=== PATIENT | male | born 1930 | race Caucasian/White ===

== ENCOUNTER → 2016-10-08 | Outpatient (CLI) | payer MEDICARE ==
[~2016-10-08] MED LIST: ALBUTEROL2.5 MG/0.5 INH; AMIODARONE HCL200 MG PO; ASPIRIN325 MG PO; AUGMENTIN875 MG PO; CEFTRIAXONE2 GM IV; CLOTRIMAZOLE-BE45 GM TOP; CORDARONE,PACE200 MG PO; DELTASONE10 MG PO; DELTASONE5 MG PO; DULERA 100 MCG/51 EA INH; FLAGYL500 MG PO; FLORASTOR250 MG PO; KEFLEX500 MG PO; LACTINEX (FLORA1 TAB PO; LEVOTHROID (S100 MCG PO; LEVOTHROID(SYN75 MCG PO; NORVASC5 MG PO; PROTONIX40 MG PO; ROLAIDS CHEWAB1 EACH PO; SYMBICORT 80-10.2 GM INH; THERA-VITE W/ B1 TAB PO; TYLENOL325 MG PO; ZOCOR40 MG PO
== END | disposition disaster alternative care site (69) ==
LOC: GRAD 08:38
DX: R19.06 Epigastric swelling, mass or lump (principal); K76.9 Liver disease, unspecified

== ENCOUNTER → 2016-10-19 | Day surgery (SDC) | payer MEDICARE ==
[2016-10-19 09:07] LABS: INR - (THERAPEUTIC) 1.12 (0.92-1.07); PROTIME 11.8 SECONDS (9.8-11.4)
== END | disposition disaster alternative care site (69) ==
LOC: GOPD 10-13 → EDSTATUS 13:30 → GOPD 13:30
PROVIDERS: Family Medicine
PROC: 0FB13ZX Excision of Right Lobe Liver, Percutaneous Approach, Diagnostic (ICD-10-PCS; principal; 2016-10-19)
DX: B17.9 Acute viral hepatitis, unspecified (principal); K72.90 Hepatic failure, unspecified without coma; I10 Essential (primary) hypertension; J45.30 Mild persistent asthma, uncomplicated; E78.5 Hyperlipidemia, unspecified; E03.9 Hypothyroidism, unspecified; Z87.891 Personal history of nicotine dependence; Z90.49 Acquired absence of other specified parts of digestive tract; Z98.890 Other specified postprocedural states; Z79.82 Long term (current) use of aspirin; Z79.899 Other long term (current) drug therapy

== ENCOUNTER 2016-10-20 14:14 | Inpatient (IN) | payer MEDICARE ==
[~2016-10-20] VITALS: Ht 154.9 cm; Wt 58.4 kg
--- NOTE | ~2016-10-20 | CON ---
PATIENT'S NAME: VIRIDIANA LEVIN [facility] AGE: 86 Y [address] ROOM: [place] [address] LOCATION: GPCU ADMIT DATE: 10/20/2016 Consultation DISCHARGE DATE: FAMILY PHYSICIAN: TIMOTHY HOLMAN MD ATTENDING PHYSICIAN: Aden FLORES DATE OF CONSULTATION: 10/28/2016 REFERRING PHYSICIAN: Chantell Up M.D. REASON FOR VISIT: Right arm swelling. HISTORY OF PRESENT ILLNESS: This is an 86-year-old male patient who was admitted to [facility] with severe sepsis. He has a significant history of COPD, hypothyroidism, paroxysmal atrial fibrillation, liver abscess, septic shock secondary to E. coli, CAD, and chronic diastolic congestive heart failure. Per nursing documentation, the patient had a right posterior forearm IV infiltration on 10/24/2016. The patient has noted increasing arm swelling. He is denying arm pain. No open ulcers. No cyanosis or skin discoloration. Normal range of motion noted. Dryness to heels noted. No other skin issues. The patient denies fevers, chills, or sweats. He reports good oral intake. He denies chest pain or shortness of breath. He admits to fatigue. PAST MEDICAL HISTORY: Chronic diastolic congestive heart failure, dyslipidemia, nonobstructive coronary artery disease, paroxysmal atrial fibrillation, essential hypertension, COPD, hyperthyroidism, liver abscess, and septic shock secondary to E. coli. PAST SURGICAL HISTORY: Cholecystectomy, liver biopsy, laminectomy with decompression, bilateral cataract removal, hand surgery, and heart catheterization. FAMILY HISTORY: The patient's mother suffered from diabetes. SOCIAL HISTORY: The patient lives in [place]. He quit smoking in 1968. He denies alcohol or illicit drug use. PATIENT'S NAME: VIRIDIANA LEVIN [facility] AGE: 86 Y [address] ROOM: [address] [place] [address] LOCATION: GPCU ADMIT DATE: 10/20/2016 Consultation DISCHARGE DATE: FAMILY PHYSICIAN: TIMOTHY HOLMAN MD ATTENDING PHYSICIAN: Aden FLORES ALLERGIES: GUAIFENESIN. CURRENT MEDICATIONS: Please refer to the medication administration record. REVIEW OF SYSTEMS: All are negative except as mentioned above in the HPI. PHYSICAL EXAMINATION: VITAL SIGNS: Temperature 98.4, pulse 75, respirations 18, blood pressure 155/70, pulse oximetry 93%, height 5 feet and 1 inch, and weight 60.3 kg. GENERAL: The patient is alert and oriented. Slightly hard of hearing. HEENT: Head normocephalic and atraumatic. RESPIRATIONS: Even and unlabored. NEUROLOGIC: Grossly nonfocal. EXTREMITIES: +2 pedal pulses. +1 lower leg edema. Capillary refill intact. Skin peeling noted to heels. Extremities are warm to touch. +2 right radial pulse. SKIN: +2 edema to the right forearm, elbow, and upper arm. No ulcers or discoloration. No other skin issues. LABORATORY DATA: White blood cell count 25.1, hemoglobin 10.2, hematocrit 31.4, and platelets 337. Sodium 138, potassium 3.9, chloride 105, bicarbonate 25, BUN 23, creatinine 0.9, glucose 128, albumin 2.2, and prealbumin 15. ASSESSMENT AND PLAN: Again, this is an 86-year-old male patient who was admitted to [facility] with severe sepsis. Wound Care consult to evaluate and assess right arm swelling. 1. Right arm edema secondary to IV infiltration. No open areas. No discoloration noted. No pain. Orders to elevate and use ice intermittently. The patient would benefit from compression. Discussed edema wear, however, we do not have available for inpatients. Gave handout to patient if he would like to purchase on his own on dismissal. For now, we will use Tubigrip size C compression. Nursing is to apply on in the morning and off at bedtime. 2. Bilateral heel xerosis. Nursing is to apply Aloe [place] b.i.d. to heels. 3. Severe sepsis secondary to liver abscess. The patient on IV antibiotics. 4. Atrial fibrillation. Cardio on board. I would like to thank Dr. Up for this consultation. PATIENT'S NAME: VIRIDIANA LEVIN [facility] AGE: 86 Y [address] ROOM: [id number] [place] [id number] [facility]: [facility] ADMIT DATE: 10/20/2016 Consultation DISCHARGE DATE: FAMILY PHYSICIAN: TIMOTHY HOLMAN MD ATTENDING PHYSICIAN: Aden FLORES TERRELL MATHEWS MD MKS/danny /[id number] d: 10/28/162027 t: 11/09/16 1200, CONSULTATION REPORT
--- NOTE | ~2016-10-20 | ER ---
PATIENT'S NAME: VIRIDIANA LEVIN [facility] AGE: 86 Y [address] ROOM: [place] [address] LOCATION: GPCU ADMIT DATE: 10/20/2016 ER/Outpatient Report DISCHARGE DATE: FAMILY PHYSICIAN: TIMOTHY PAZ MD ATTENDING PHYSICIAN: Aden XIAO Admission date and time documented in the medical record. I saw the patient at 1425 hours. CHIEF COMPLAINT: Mid to right upper quadrant abdominal pain. HISTORY OF PRESENT ILLNESS: The patient is an 86-year-old male, who presented to the emergency room with mid epigastric right upper quadrant abdominal pain. He had a liver biopsy yesterday, developed this pain through the night and especially through today. Did have an elevated temperature of 101 this morning, had some Tylenol, it was normal at 98 here in the emergency department. Blood pressure was stable at 123/57, his pulse was 89, respirations 16, and O2 saturation on room air was 95%. Did not have any rigors or chills. No nausea, vomiting, or diarrhea. He is passing gas. No urinary frequency, urgency, or dysuria. No chest pain or shortness of breath. No lightheadedness, dizziness, syncope, or near syncope. No fall or trauma. No recent colds, coughs, flus, fever, chills, or sweats. He has had a liver lesion that was biopsied yesterday, results pending. No headache, eyes, ears, nose, throat, neck, or spine pain. No joint or muscle swelling, redness, or pain. No skin eruptions or rash. No history of endocrine problems, neuro changes, or psych issues. HOME MEDICATIONS: See attached medication list. ALLERGIES: NONE. SOCIAL HISTORY: Nonsmoker over the past 40 years. Nondrinker since last December. SIGNIFICANT PAST MEDICAL HISTORY: Hypertension, atherosclerotic ischemic heart disease with coronary artery disease, COPD, degenerative disk disease, lumbar spinal stenosis, remote tobacco, alcohol abuse, hypothyroidism, septic shock, and paroxysmal atrial fibrillation. OPERATIONS: Lumbar laminectomy, cholecystectomy, sinus surgery, and hand surgery. PATIENT'S NAME: VIRIDIANA LEVIN [facility] AGE: 86 Y [address] ROOM: [place] [address] LOCATION: GPCU ADMIT DATE: 10/20/2016 ER/Outpatient Report DISCHARGE DATE: FAMILY PHYSICIAN: TIMOTHY PAZ MD ATTENDING PHYSICIAN: Aden XIAO REVIEW OF SYSTEMS: All systems reviewed by me are negative with the exception of those discussed in the history of present illness. PHYSICAL EXAMINATION: VITAL SIGNS: Temperature 98, pulse 89, respirations 16, blood pressure 123/57, and O2 saturation on room air is 95%. HEAD: Normocephalic. EYES: Extraocular muscles intact. PERRL. Sclerae clear, nonicteric. EARS: Clear TMs bilaterally. NOSE AND THROAT: Clear. Mucous membranes moist. NECK: Negative. SPINE: Negative. LUNGS: Clear. Good air flow. No rales, rhonchi, or wheezes. HEART: Regular. Pulses are palpable. ABDOMEN: Soft. Tender in the epigastric and right upper quadrant. He has guarding. He has some rigidity in that area with rebound tenderness. No palpable masses. No organomegaly. No CVA tenderness. EXTREMITIES: Intact. NEUROVASCULAR: Intact. SKIN: Clear. No skin eruptions or rash. LABORATORY DATA AND X-RAYS: CMS was normal except for a low CO2 content of 21, elevated glucose of 147, elevated BUN of 62, elevated creatinine of 2.1, and low GFR of 30. Bilirubin was normal. Alkaline phosphatase was 184. AST was 129. ALT was 96. Amylase and lipase were normal. Procalcitonin was 9.57. White count was 28,600, 79 segs, 12 bands, 5 lymphs, 4 monos, hemoglobin 9.6, hematocrit 29.8, platelet count was 293,000. PTT was 24, pro-time was 11.7, and INR 1.11. I did a noncontrast CT scan of the abdomen and pelvis, that showed increased size and numbers of liver lesions with suspected hepatic abscess per Radiology. See dictated transcribed Radiology report. EMERGENCY DEPARTMENT COURSE: I did start the patient on IV normal saline and fluids. Gave him morphine for pain. Did draw 2 blood cultures, got a urine for urine culture, and chest x- ray. Chest x-ray results pending. IMPRESSION: 1. Severe epigastric right upper quadrant abdominal pain, status post liver biopsy approximately 24 hours ago. The patient has increased liver lesions in number and size. CT scan was performed, the radiologist thought possibly the patient had liver abscesses. He did have a fever without rigors and a leukocytosis with left shift. PATIENT'S NAME: VIRIDIANA LEVIN [facility] AGE: 86 Y [address] ROOM: [address] [place], [place] [address] [facility] ADMIT DATE: 10/20/2016 ER/Outpatient Report DISCHARGE DATE: FAMILY PHYSICIAN: TIMOTHY PAZ MD ATTENDING PHYSICIAN: Aden XIAO 2. Acute renal failure with a BUN of 62, creatinine of 2.1, and low GFR of 30, etiology uncertain. 3. Hypertension. 4. Chronic obstructive pulmonary disease. 5. Atherosclerotic ischemic heart disease with coronary artery disease. 6. Remote tobacco and alcohol abuse. 7. Hypothyroidism. 8. Past history of septic shock. 9. History of paroxysmal atrial fibrillation. PLAN: I discussed this patient with Dr. Xiao, hospitalist. Dr. Xiao is going to evaluate the patient, we will proceed on his recommendations. The patient most likely will need to be hospitalized. I did discuss this with the patient's personal physician, Dr. Paz, he wanted the hospitalist consult. Discussion ensued with the patient concerning my findings and recommendations, he understands. MD SANA BIRMINGHAM/modl /[id number] d: 10/20/16 2244 t: 10/21/16 0604, OUTPATIENT REPORT
--- NOTE | ~2016-10-20 | DS ---
PATIENT'S NAME: VIRIDIANA LEVIN [facility] AGE: 86 Y [address] ROOM: [facility] [place], [place] [address] LOCATION: GPCU ADMIT DATE: 10/20/2016 Discharge Summary DISCHARGE DATE: 11/03/2016 FAMILY PHYSICIAN: Blanco Paz MD ATTENDING PHYSICIAN: Ninoska Samaniego PRINCIPAL DIAGNOSES: 1. 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 2. Bacteremia Fusobacterium. 3. Paroxysmal atrial fibrillation. 4. Chronic diastolic congestive heart failure. 5. Chronic obstructive pulmonary disease. 6. Essential hypertension. 7. Mild protein-calorie malnutrition. 8. Acute hypoxic respiratory failure, resolved. HOSPITAL COURSE: Please reference any of the admitting data to the history and physical as dictated by Dr. Ninoska Samaniego. Briefly, this is an 86-year-old male who came in with fever and had a CT scan review suspicious for recurrent liver abscess. Also had an elevated procalcitonin of greater than 9 and white blood cell count greater than 28 and a lactate of 2.3, was admitted with sepsis order set, started on IV meropenem. Given IV fluid resuscitation. Blood cultures were obtained and CT scan drainage was ordered. This was then completed on 10/21. The patient was sent back to the floor with the drain intact. Flagyl was added to his regimen. His blood cultures returned with gram-positive cocci in clusters, so vancomycin was added. Blood cultures then grew out Fusobacterium species. The liver abscess grew out the same. A followup CT of the abdomen and pelvis serially, but showed increase in size. He was again monitored serially, which showed stable, reduction from 8-6 cm. He was then narrowed his antibiotic regimen to meropenem and Flagyl. He did have to return to Interventional Radiology for 2nd drain placement. Infectious Disease consultation was obtained and meropenem was changed to Rocephin to reduce risk of long-term resistance. Gastroenterology consultation was also obtained for further investigation of the etiology of recurring liver abscess. MRCP was completed which did not show any biliary or pancreatic ductal dilatation. There are no intraductal filling defects. It was not felt that the patient needed to further undergo repeat colonoscopy or EGD due to recent history. The etiology considered was undertreated previous liver abscess. Repeat blood cultures maintained negative. PICC line was placed. Recommendations were made for antibiotics for 4-6 weeks. With serial observation by imaging of the abscess. Follow up with interventional radiology for CT scan. Continue flushing the drain twice daily and monitoring output. PATIENT'S NAME: VIRIDIANA LEVIN [facility] AGE: 86 Y [address] ROOM: [place] [address] LOCATION: GPCU ADMIT DATE: 10/20/2016 Discharge Summary DISCHARGE DATE: 11/03/2016 FAMILY PHYSICIAN: Blanco Paz MD ATTENDING PHYSICIAN: Ninoska Samaniego The patient with a history of paroxysmal atrial fib, went into atrial fibrillation with rapid ventricular response. He did respond to IV beta- nelida therapy. He was placed on an amiodarone drip and transitioned to oral amiodarone. A CLAY was performed that showed no vegetations or acute complications. EF was normal. The patient was then rate controlled and monitored on telemetry. He did convert to normal sinus rhythm. Because of the drains still in place and the possibility of manipulation, long-term anticoagulation was held and will be discussed further as an outpatient. The patient did have complicating with his COPD. While undergoing a CT scan on 10/21, the patient did have a rapid response which was felt to be respiratory induced COPD exacerbation, was placed on nebulizers and steroids with a burst taper, tolerated it well and return to his baseline by end of stay. The patient was deconditioned during his hospitalization. Physical Therapy and Occupational Therapy gave him tenriism cares. DVT prophylaxis was maintained with pneumatic compression devices and often ambulation. CONSULTING PROVIDERS: 1. Interventional radiology. 2. Infectious disease. 3. Cardiology, Dr. Kathy Alatorre. PROCEDURE: CT guided drain insertion x2. PERTINENT POSITIVE LAB DATA: Cardiac enzymes were negative. CBC initially showed a white count of greater than 28,000, had normalized by 10/30 at 9.3, hemoglobin 9.0, hematocrit 27.9, and platelet count of 338. Chemistry panel which initially showed an acute kidney injury of 2.1, had normalized to a creatinine at 0.9, BUN 23, and GFR of greater than 60 at discharge. Electrolytes on 10/28, showed a sodium 138, potassium 3.9, chloride 105, CO2 25, calcium 7.4, liver functions initially however elevated with an AST of 129, ALT of 296, alkaline phosphatase 184, total bilirubin 0.6, normalizing through the remainder of his stay. INR studies were normal. Pre-albumin was last 15 and TSH was 1.380. Procalcitonin levels were trended from 9.57 to 0.34. MICROBIOLOGY DATA: Blood cultures x2 showed Fusobacterium species, liver aspirate showed Fusobacterium species, liver biopsy showed no acid-fast bacilli and no fungal elements. Repeat blood cultures from October 29 and October 30 were negative. Liver tissue sent for needle core biopsies of the liver acute chronic PATIENT'S NAME: VIRIDIANA LEVIN [facility] AGE: 86 Y [address] ROOM: [place] [address] LOCATION: GPCU ADMIT DATE: 10/20/2016 Discharge Summary DISCHARGE DATE: 11/03/2016 FAMILY PHYSICIAN: Blanco Paz MD ATTENDING PHYSICIAN: Ninoska Samaniego inflammation and necrosis. Sent to [facility] for consultation. Suggestive of abscess wall. RADIOLOGIC IMAGING: Initial CT abdomen and pelvis showed multiple liver abscesses with serial imaging on 10/25 showing a decrease in size from 8 cm to 6 cm. Repeat on October 30 showed appropriate drainage with proper positioning of the catheters with an ill-defined area of patchy signal measuring up to 1 cm. Also noted small left adrenal known and small bilateral pleural fluid collection. Serial chest x-rays confirmed the small bilateral pleural effusion. DISCHARGE MEDICATIONS: 1. Rocephin 2 g IV daily with stop date to be determined at Infectious Disease followup. 2. Amiodarone 200 mg p.o. twice daily. 3. Amlodipine 5 mg p.o. every day. 4. Levothyroxine 75 mcg p.o. every day before breakfast. 5. Flagyl 500 mg p.o. 3 times daily, stop date to be determined by Infectious Disease followup. 6. Deltasone 10 mg p.o. every day, stop date 11/05 at 0900 hours. 7. Deltasone 5 mg p.o. every day, start date 11/06 at [id number] hours, stop date 11/08 at 0900 hours. 8. Zocor 40 mg p.o. every day. 9. Symbicort 80/4.5 mcg inhaler two puffs inhalation twice daily. 10. Aspirin 325 mg p.o. every day. 11. Albuterol 1 vial inhalation three times daily as needed. 12. Multivitamin one tablet p.o. every day. 13. Lactobacillus probiotic or generic equivalent one tablet p.o. twice daily while on antibiotics. DISCHARGE INSTRUCTIONS: The patient is being discharged home with home health care. A [id number] sheet was completed. The patient requires home health care for monitoring of his PICC line, home infusion, antibiotics, and abdominal drain cares. He will need to have a followup appointment with Dr. Ashkan Paz preferably by Monday 11/06. He is to notify his primary care doctor if his temperatures greater than 101, redness, heat, pain, or IV or liver drainage changes. Family to have a followup with Dr. Morel, interventional radiologist, in 1 week for followup of the drain placement and liver abscess. He should continue to flush the drain with 5 mL normal saline twice daily and record output of each drain every day and take to followup. The drain should remain in place until felt stable enough to be removed. PATIENT'S NAME: VIRIDIANA LEVIN [facility] AGE: 86 Y [address] ROOM: [place] [address] LOCATION: GPCU ADMIT DATE: 10/20/2016 Discharge Summary DISCHARGE DATE: 11/03/2016 FAMILY PHYSICIAN: Blanco Paz MD ATTENDING PHYSICIAN: Ninoska Samaniego The patient should also follow up with Dr. Kathy Alatorre regarding anticoagulation after liver drain is removed in 2 weeks. The patient should have followup with Infectious Disease on November 12. The liver abscess will continue to be monitored serially. The patient will require a 4-6 weeks of IV antibiotics and most likely oral antibiotics for 3-6 months for suppressive treatment. PICC line cares and routine dressings changes were instructed to the patient. All new medications were instructed with the patient's home health care was ordered. Care management to help facilitate discharge planning. Total time arranging discharge greater than 30 minutes. Above line of management was discussed with the patient and spouse who stated complete understanding of the plan. All questions were answered satisfactorily. Thank you for allowing us to participate in the care of this patient while at [facility]. SERENITY BOLAÑOS APRN, APRN FOR MD CHAVEZ PERRY/danny /[id number] CC: MD Nish Barrios MD Bradley D Rodgers, MD Daniel J McGowan, MD d: t: 11/04/16 1601, DISCHARGE SUMMARY
--- NOTE | ~2016-10-20 | CON ---
PATIENT'S NAME: VIRIDIANA ORTIZ [facility] AGE: 86 Y [address] ROOM: [id number] [place], [place] [address] LOCATION: GPCU ADMIT DATE: 10/20/2016 Consultation DISCHARGE DATE: FAMILY PHYSICIAN: TIMOTHY HOLMAN MD ATTENDING PHYSICIAN: Aden FLORES DATE OF CONSULTATION: 10/28/2016 REFERRING PHYSICIAN: Jamil Armstrong MD REASON FOR CONSULTATION: Liver abscess. HISTORY OF PRESENT ILLNESS: Mr. Ortiz is an 86-year-old male who was admitted to the hospital again with a liver abscess. He had been seen back in January of 2016 with a liver abscess at that time, and interestingly, he had an E coli bacteremia as well as Bacteroides fragilis from peritoneal fluid. He had a history looking back of Fusobacterium bacteremia back in 2013 as well. He says that he started to not feel well a few weeks ago again, maybe run down a bit and then really got ill in the last 10 to 14 days. When he was evaluated, a CT scan showed the liver mass. This was biopsied and again was consistent with an abscess. He worsened and ended up being admitted to the hospital. His lesions have gotten bigger over that period of time. He now has blood cultures and culture from the abscess which are growing Fusobacterium species. He is on meropenem and metronidazole. He is feeling a little better. He is hoping that the drain can come out soon. Apparently, he is not putting out much, but the nurse thinks it might be clogged up. IR is going to look at this. In any case, ID was asked to see and assist with further antibiotics. After his last episode, the patient had a workup to look for potential source. Imaging was pretty unremarkable as far as a definite source. He had EGD and colonoscopy which were both unrevealing at that time. He does have a history of a cholecystectomy. He does not remember having much bile duct work done at that time, but initially did not even recall having his cholecystectomy, so I not sure about the validity of his story. He is feeling some better now getting some of his energy back, not having fevers or chills. PAST MEDICAL HISTORY: Significant for hypothyroidism, COPD, poor hearing, and hypertension in addition to his liver abscess previously. He has had back surgery, hand surgery. He has had the cholecystectomy. FAMILY HISTORY: Brother had heart disease. Sister had heart disease. SOCIAL HISTORY: PATIENT'S NAME: VIRIDIANA ORTIZ [facility] AGE: 86 Y [address] ROOM: [place] [address] LOCATION: GPCU ADMIT DATE: 10/20/2016 Consultation DISCHARGE DATE: FAMILY PHYSICIAN: TIMOTHY HOLMAN MD ATTENDING PHYSICIAN: Aden FLORES He does not smoke or drink. 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 MEDICATIONS: He is on, 1. Meropenem. 2. Metronidazole. ALLERGIES: NO ANTIBIOTIC ALLERGIES. REVIEW OF SYSTEMS: All remaining review of systems, otherwise, negative. Pertinent positives and negatives in the HPI. PHYSICAL EXAMINATION: GENERAL: He is not in any acute distress. Sitting up in a chair. He is awake and alert. VITAL SIGNS: His T-max is 98.4, blood pressure is 151/72, pulse 68, respirations 20. HEENT: Without icterus or thrush. NECK: Supple. LUNGS: Clear. HEART: Regular. ABDOMEN: Soft and nontender. He has a drain in his right upper quadrant with mostly bloody drainage in the bag, a little bit serous. EXTREMITIES: Without cyanosis, clubbing, or edema. SKIN: Without rash. LABORATORY DATA: Blood cultures from 10/20/2016 are growing Fusobacterium species. The aspirate culture from 10/19/[address] scan was reviewed. His white count is 25.1, hemoglobin 10.2, platelet count 337. Creatinine 0.9. ASSESSMENT AND PLAN: 1. Liver abscess. 2. Bacteremia. 3. Fusobacterium infection. PLAN: I am not sure the source of why he would have a recurrent abscess here. We will cover him with ceftriaxone and continue the metronidazole for now. He is going to need these until resolution of his abscesses radiographically which may take 4 to 6 weeks. Could potentially be on something by mouth pending how he does and tolerates things. The issue here is why did he have another PATIENT'S NAME: VIRIDIANA ORTIZ [facility] AGE: 86 Y [address] ROOM: [place] [address] LOCATION: GPCU ADMIT DATE: 10/20/2016 Consultation DISCHARGE DATE: FAMILY PHYSICIAN: TIMOTHY HOLMAN MD ATTENDING PHYSICIAN: Aden FLORES. He had a pretty extensive workup of his colon and upper GI tract last time. Certainly, he could have had an occult diverticulitis that is seen in his liver again, but he did not really have a history consistent with that. I wonder if he has biliary issue and maybe he had a sphincterotomy in the past and he has reflux up in his common bile duct to give this big of an abscess or does he have an obstruction of his bile duct. The CT scan does not suggest the above, can consider an MRCP, but I am not sure what can be done otherwise to prevent this if that is indeed the case. Any long-term antibiotics will only lead to development of resistance if we are trying to fight gut organisms here. We will see what others think. Continue his antibiotics for now. Get repeat blood cultures in the morning and follow his response. MD HECTOR JAY/modl /[id number] d: 10/28/16 2224 t: 12/08/16 1103, CONSULTATION REPORT
--- NOTE | ~2016-10-20 | CON ---
PATIENT'S NAME: VIRIDIANA ORTIZ [facility] AGE: 86 Y [address] ROOM: [id number] [place], [place] [address] LOCATION: GPCU ADMIT DATE: 10/20/2016 Consultation DISCHARGE DATE: FAMILY PHYSICIAN: TIMOTHY HOLMAN MD ATTENDING PHYSICIAN: Aden FLORES DATE OF CONSULTATION: 10/28/2016 REFERRING PHYSICIAN: Jamil Armstrong MD REASON FOR CONSULTATION: Liver abscess. HISTORY OF PRESENT ILLNESS: Mr. Ortiz is an 86-year-old male who was admitted to the hospital again with a liver abscess. He had been seen back in January of 2016 with a liver abscess at that time, and interestingly, he had an E coli bacteremia as well as Bacteroides fragilis from peritoneal fluid. He had a history looking back of Fusobacterium bacteremia back in 2013 as well. He says that he started to not feel well a few weeks ago again, maybe run down a bit and then really got ill in the last 10 to 14 days. When he was evaluated, a CT scan showed the liver mass. This was biopsied and again was consistent with an abscess. He worsened and ended up being admitted to the hospital. His lesions have gotten bigger over that period of time. He now has blood cultures and culture from the abscess which are growing Fusobacterium species. He is on meropenem and metronidazole. He is feeling a little better. He is hoping that the drain can come out soon. Apparently, he is not putting out much, but the nurse thinks it might be clogged up. IR is going to look at this. In any case, ID was asked to see and assist with further antibiotics. After his last episode, the patient had a workup to look for potential source. Imaging was pretty unremarkable as far as a definite source. He had EGD and colonoscopy which were both unrevealing at that time. He does have a history of a cholecystectomy. He does not remember having much bile duct work done at that time, but initially did not even recall having his cholecystectomy, so I not sure about the validity of his story. He is feeling some better now getting some of his energy back, not having fevers or chills. PAST MEDICAL HISTORY: Significant for hypothyroidism, COPD, poor hearing, and hypertension in addition to his liver abscess previously. He has had back surgery, hand surgery. He has had the cholecystectomy. FAMILY HISTORY: Brother had heart disease. Sister had heart disease. SOCIAL HISTORY: PATIENT'S NAME: VIRIDIANA ORTIZ [facility] AGE: 86 Y [address] ROOM: [place] [address] LOCATION: GPCU ADMIT DATE: 10/20/2016 Consultation DISCHARGE DATE: FAMILY PHYSICIAN: TIMOTHY HOLMAN MD ATTENDING PHYSICIAN: Aden FLORES He does not smoke or drink. 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 MEDICATIONS: He is on, 1. Meropenem. 2. Metronidazole. ALLERGIES: NO ANTIBIOTIC ALLERGIES. REVIEW OF SYSTEMS: All remaining review of systems, otherwise, negative. Pertinent positives and negatives in the HPI. PHYSICAL EXAMINATION: GENERAL: He is not in any acute distress. Sitting up in a chair. He is awake and alert. VITAL SIGNS: His T-max is 98.4, blood pressure is 151/72, pulse 68, respirations 20. HEENT: Without icterus or thrush. NECK: Supple. LUNGS: Clear. HEART: Regular. ABDOMEN: Soft and nontender. He has a drain in his right upper quadrant with mostly bloody drainage in the bag, a little bit serous. EXTREMITIES: Without cyanosis, clubbing, or edema. SKIN: Without rash. LABORATORY DATA: Blood cultures from 10/20/2016 are growing Fusobacterium species. The aspirate culture from 10/19/[address] scan was reviewed. His white count is 25.1, hemoglobin 10.2, platelet count 337. Creatinine 0.9. ASSESSMENT AND PLAN: 1. Liver abscess. 2. Bacteremia. 3. Fusobacterium infection. PLAN: I am not sure the source of why he would have a recurrent abscess here. We will cover him with ceftriaxone and continue the metronidazole for now. He is going to need these until resolution of his abscesses radiographically which may take 4 to 6 weeks. Could potentially be on something by mouth pending how he does and tolerates things. The issue here is why did he have another PATIENT'S NAME: VIRIDIANA ORTIZ [facility] AGE: 86 Y [address] ROOM: [place] [address] LOCATION: GPCU ADMIT DATE: 10/20/2016 Consultation DISCHARGE DATE: FAMILY PHYSICIAN: TIMOTHY HOLMAN MD ATTENDING PHYSICIAN: Aden FLORES. He had a pretty extensive workup of his colon and upper GI tract last time. Certainly, he could have had an occult diverticulitis that is seen in his liver again, but he did not really have a history consistent with that. I wonder if he has biliary issue and maybe he had a sphincterotomy in the past and he has reflux up in his common bile duct to give this big of an abscess or does he have an obstruction of his bile duct. The CT scan does not suggest the above, can consider an MRCP, but I am not sure what can be done otherwise to prevent this if that is indeed the case. Any long-term antibiotics will only lead to development of resistance if we are trying to fight gut organisms here. We will see what others think. Continue his antibiotics for now. Get repeat blood cultures in the morning and follow his response. MD HECTOR JAY/katl /[id number] d: t: 10/28/16 2247, CONSULTATION REPORT
--- NOTE | ~2016-10-20 | CON ---
PATIENT'S NAME: JUAN LEVINTON Guy [facility] AGE: 86 Y [address] ROOM: [place] [address] LOCATION: GICU ADMIT DATE: 10/20/2016 Consultation DISCHARGE DATE: FAMILY PHYSICIAN: TIMOTHY HOLMAN MD ATTENDING PHYSICIAN: Aden FLORES DATE OF CONSULTATION: 10/21/2016 REFERRING PHYSICIAN: Jamil Armstrong MD REASON FOR CARDIOLOGY CONSULTATION: Atrial fibrillation with rapid ventricular response. HISTORY OF PRESENT ILLNESS: This is an 86-year-old male who normally follows cardiology care with Dr. Sofi Alatorre. He was last seen in his outpatient clinic in July of this year. He has a previous history of paroxysmal atrial fibrillation and amiodarone use. His amiodarone was discontinued in June of this year and a ZIO patch in July of this year showed a normal sinus rhythm without subsequent arrhythmia. He is currently under the care of the Hospitalist Service for a sepsis secondary to a liver abscess. This consult is requested due to the patient's conversion to an atrial fibrillation with rapid ventricular response. He has no complaints of chest pain, palpitations, shortness of breath, presyncope, syncope, nausea, or vomiting. His only complaint is of fatigue. At the time of his consult, he is resting comfortably in bed and in no acute distress. PAST MEDICAL HISTORY: 1. Paroxysmal atrial fibrillation. 2. Nonobstructive coronary artery disease. 3. Dyslipidemia. 4. Chronic diastolic congestive heart failure. 5. Hypertension. 6. History of a previous septic shock from E. coli in 2016. 7. COPD. 8. Hypothyroidism. PAST SURGICAL HISTORY: 1. Previous heart catheterization without intervention. 2. Laparoscopic cholecystectomy. 3. Liver biopsy in 2016. 4. Total laminectomy of L3 and decompression of L3-L4 and a lumbar laminectomy of L2, he also had a posterolateral lumbar L3 to L4; all of these procedures were done in 2007. 5. Previous bilateral cataract removal. 6. Hand surgery. PATIENT'S NAME: VIRIDIANA LEVIN [facility] AGE: 86 Y [address] ROOM: [place] [address] LOCATION: GICU ADMIT DATE: 10/20/2016 Consultation DISCHARGE DATE: FAMILY PHYSICIAN: TIMOTHY HOLMAN MD ATTENDING PHYSICIAN: Aden FLORES 7. Sinus surgery. FAMILY HISTORY: The patient has a brother and a sister with a previous history of heart disease. No noted heart disease in his parents, but his mother did have diabetes mellitus. SOCIAL HISTORY: The patient is a former cigarette smoker. He smoked for a total of 10 years and quit smoking in 1968. He denies alcohol or illicit drug use. REVIEW OF SYSTEMS: Pertinent positives listed in the HPI, all other review of systems evaluated and negative. CURRENT MEDICATIONS: 1. Atrovent inhaled every 6 hours. 2. Dulera 2 puffs inhaled twice daily. 3. Xopenex inhaled every 6 hours. 4. Flagyl 500 mg IV every 8 hours. 5. Meropenem 500 mg IV every 12 hours. 6. Solu-Medrol 40 mg IV every 6 hours. 7. Synthroid 75 mcg p.o. daily. 8. Protonix 40 mg p.o. daily. MEDICATION ALLERGIES: Guaifenesin. DIAGNOSTICS: CMS evaluation shows sodium of 139, potassium 4.2, BUN of 59, creatinine 1.6, and a glucose of 139. He has a PT/INR of 12.3 and 1.17 respectively as well as a magnesium level of 2.5. CBC evaluation shows a white blood cell count of 24.2, hemoglobin of 8.5, hematocrit of 26.7, and a platelet of 270. PHYSICAL EXAMINATION: VITAL SIGNS: Temperature 98.5, pulse 128, respirations 24, blood pressure 103/65, O2 saturation 93% on 2 L nasal cannula. The patient weighs 54.4 kilograms. SKIN: Watson, warm, and dry. EYES: Sclerae clear. No xanthelasmas. ENT: Oral mucosa is pink and moist. No jugular venous distention. No carotid bruits. CHEST: Respirations are even and unlabored. LUNGS: Lung sounds are clear to bilateral upper lobes. They are diminished to bilateral lower lobes. HEART: Irregular rate and rhythm. Normal S1, S2. 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 ABDOMEN: Soft and nontender. PATIENT'S NAME: VIRIDIANA LEVIN [facility] AGE: 86 Y [address] ROOM: [place] [address] LOCATION: [facility] ADMIT DATE: 10/20/2016 Consultation DISCHARGE DATE: FAMILY PHYSICIAN: TIMOTHY HOLMAN MD ATTENDING PHYSICIAN: Aden FLORES MUSCULOSKELETAL: Equal muscle strength to upper and lower extremities bilaterally against resistance. EXTREMITIES: Peripheral pulses palpable. No clubbing or cyanosis noted. Does have mild lower extremity edema present. PSYCH: Alert and oriented. Mood and affect are appropriate. IMPRESSION AND PLAN: Per Dr. Rebollar. 1. Recurrent atrial fibrillation with rapid ventricular response. The patient has a previous history of paroxysmal atrial fibrillation and did have previous achievement of sinus rhythm with p.o. amiodarone. We will restart him on amiodarone drip with a bolus followed by drip per protocol. He has only been in atrial fibrillation for 2 to 3 hours and unable to fully anticoagulate the patient at this time due to a planned liver drain today. 2. Sepsis secondary to liver abscess. Once again, plan will be to drain that. We will also proceed with a transesophageal echocardiogram to fully evaluate for possible vegetation as per the hospitalist's request. 3. Nonobstructive coronary artery disease. 4. Acute kidney injury. 5. Chronic obstructive pulmonary disease. 6. Hypothyroidism. 7. Anemia. 8. History of hypertension but is now borderline hypotensive. His catheterization in 2011 showed moderate disease on his mid LAD as well as a tight ostial septal junction. His echocardiogram showed an ejection fraction in January of 55% and he had previously had a CLAY limited at that time which showed no vegetation. Given that the patient has coronary artery disease and acute kidney injury, the best option for him is to restart his amiodarone. We will also check a set of cardiac enzymes as well as a proBNP and an EKG. We will continue to monitor, evaluate, and treat as appropriate. We will discuss this patient with Dr. Sofi Alatorre and transfer care back to him when he is present on 10/23/2016. Until then, thank you for allowing [facility] to interact in the care of this patient. Thank you for this consult. LYNNE SWANSON APRN FOR MD GRIFFIN THOMPSON/danny /[id number] d: 10/21/16 2255 t: 11/06/16 0839, CONSULTATION REPORT
--- NOTE | ~2016-10-20 | ECHO ---
Transesophageal Echocardiography Report (CLAY) Demographics Patient Name VIRIDIANA LEVIN Date of Study 10/21/2016 Patient Number [id number] Visit Number [id number] Date of 1930 Room Number G6332 Gender Male Number Age 86 year(s) Referring Jackson Farah Sales Recruiter Eladio Laura Physician MD Ninoska Samaniego Physician Interpreting Smooth Gee Woodwork Teacher Physician Yousif LOPEZ Supervising Ordering Kiera Farah MD, MD/MLP Physician Nurse Stress Waste Machine Operator Conclusions Summary No vegetations are seen. No masses in the L atrium including the appendage. Estimated EF: 50 %. Procedure Type of Study CLAY procedure Procedure Date Date: 10/21/2016 Start: 11:48 AM Study Location: Inpatient Portable Technical Quality: Adequate visualization Indications:Atrial fibrillation. Additional Indications:Sepsis Patient Status: Routine HR: 113 bpm BP: 102/65 mmHg CLAY Performed By: the attending and the unit trust manager Type of Anesthesia: General anesthesia Allergies - No known allergies:(ketek, zephrex). Findings Left Ventricle Estimated EF: 50 %. Right Ventricle Normal right ventricular size and function. Left Atrium Normal left atrial size. Right Atrium Redundant interatrial septum. No evidence of patent foramen ovale by Doppler. The right atrium is mildly dilated. Mitral Valve Trivial mitral regurgitation. Aortic Valve Normal trileaflet aortic valve. Tricuspid Valve Normal appearing tricuspid valve. Pulmonic Valve The pulmonic valve is not well visualized. Pericardial Effusion No pericardial effusion. Miscellaneous Mild thoracic aorta atherosclerosis. Signature dtt: Robert Rebollar dtd: 10/21/16 1148 Physician Self Edit
--- NOTE | ~2016-10-20 | CON ---
PATIENT'S NAME: VIRIDIANA LEVIN [facility] AGE: 86 Y [address] ROOM: [id number] [place], [place] [address] LOCATION: GPCU ADMIT DATE: 10/20/2016 Consultation DISCHARGE DATE: FAMILY PHYSICIAN: TIMOTHY HOLMAN MD ATTENDING PHYSICIAN: Aden FLORES DATE OF CONSULTATION: 10/30/2016 REFERRING PHYSICIAN: Jamil Armstrong MD HOSPITAL CONSULTATION REASON FOR CONSULTATION: Recurring liver abscess. HISTORY OF PRESENT ILLNESS: This is a very pleasant 86-year-old male, who is known to our Gastroenterology Services from previous hospitalization in February of 2016. The patient at that time, was found to have liver mass that was eventually ruled in as liver abscess. We did evaluate his GI tract with a full upper endoscopy and colonoscopy completed on 02/29/2016. The patient at that time had a sliding hiatal hernia without erosive esophagitis, antral gastritis, and a tiny protuberance in the duodenal bulb. He also at that point had a duodenal diverticulum. A full colonoscopy was also completed showing prominent external hemorrhoids, [id number] sigmoid diverticulosis with some narrowing, and diffuse colon diverticulosis, but no neoplastic lesions seen in a well prepped colon. The patient then underwent an IR drainage placement in regard to the patient's liver abscess. The patient then did undergo a repeat liver biopsy approximately 10 days ago. He does state for the past 2 weeks he has not felt well. Feeling "run down a bit" as well as some right upper quadrant pain. The patient does have a history of looking back of Fusobacterium bacteremia back in 2013 as well. On his previous hospitalization in January and February 2016, interestingly enough, it did show E. coli bacteremia as well as Bacteroides fragilis from the peritoneal fluid. The patient was admitted with recurring right upper quadrant pain and was found to have another liver abscess of unclear etiology. The patient did undergo a CT-guided drain placement to the liver on 10/29/2016 per Interventional Radiology. The patient was seen and examined. He does have a slight complain of mild pain status post drain placement in his right upper quadrant. He also has had some fevers off and on. He does feel that he is getting some of his energy level back. He denies any acute chest pain, chest pressure, nausea or vomiting, as well as ivett abdominal pain. PAST MEDICAL HISTORY: PATIENT'S NAME: VIRIDIANA LEVIN [facility] AGE: 86 Y [address] ROOM: [place] [address] LOCATION: GPCU ADMIT DATE: 10/20/2016 Consultation DISCHARGE DATE: FAMILY PHYSICIAN: TIMOTHY HOLMAN MD ATTENDING PHYSICIAN: Aden FLORES Significant for: 1. Hypothyroidism. 2. COPD. 3. Poor healing. 4. Hypertension. 5. Recurring liver abscess of unknown etiology. PAST SURGICAL HISTORY: 1. Back surgery. 2. Hand surgery. 3. Cholecystectomy. 4. He also underwent an upper endoscopy and colonoscopy in February 2016. SOCIAL HISTORY: The patient denies any tobacco, alcohol, or illicit drug use. 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 FAMILY HISTORY: The patient's mother had heart disease as well as his sister. He denies any gastrointestinal diseases to his knowledge. ALLERGIES: GUAIFENESIN. CURRENT MEDICATIONS: Please refer to the medication administration record. REVIEW OF SYSTEMS: A 10-point review of systems was completed. All were negative except for those identified in the History of Present Illness. PHYSICAL EXAMINATION: GENERAL: A very pleasant, 86-year-old, elderly male, sitting in the chair, who appears to be in no acute distress. VITAL SIGNS: Temperature 98.5, pulse of 71, respirations of 18, blood pressure 133/65, and oxygen saturations 95% on room air. SKIN: Cornelius, warm, and dry. No jaundice. HEENT: Head is normocephalic and atraumatic. Pupils are equal, round, and reactive to light. Sclerae are clear. Nonicteric. Oral mucosa is pink and moist. No thyromegaly. NECK: Soft and supple. CARDIOVASCULAR: Regular. Normal S1 and S2. RESPIRATORY: Respirations are even and unlabored. LUNGS: Clear to auscultation. ABDOMEN: Soft, mildly tender in the right upper quadrant. He does have a PATIENT'S NAME: VIRIDIANA LEVIN [facility] AGE: 86 Y [address] ROOM: [place] [address] LOCATION: GPCU ADMIT DATE: 10/20/2016 Consultation DISCHARGE DATE: FAMILY PHYSICIAN: TIMOTHY HOLMAN MD ATTENDING PHYSICIAN: SANDRA,Dagmawe drain to his right upper quadrant as well as one to his midaxillary line. Drainage does appear to be serosanguineous in small amount of quantity. MUSCULOSKELETAL: No muscle weakness or atrophy. EXTREMITIES: No clubbing, cyanosis, or edema. NEUROLOGIC: Grossly nonfocal. LABORATORY DATA AND IMAGING STUDIES: Labs and Diagnostics: White blood cell count of 9.3, hemoglobin of 9.0, hematocrit of 27.9, and platelets of 338,000. Chemistry panel includes a glucose of 128, BUN of 23, creatinine 0.9, sodium 138, potassium of 3.9, chloride 105, CO2 of 25, and albumin of 2.2. AST of 19, ALT of 35, alkaline phosphatase of 128, total bilirubin 0.4, direct bilirubin 0.1, and phosphorus of 1.7. Amylase and lipase on admission, showed amylase of 7 and lipase of 62. TSH was 1.380. The patient did undergo a CT abdomen and pelvis on 10/25/2016 showing interval placement of hepatic abscess, drainage catheter with slight enlargement of a rounded low attenuation lesion at the dome of the liver measuring up to 6 cm, small low-attenuation lesions within the left and right lobes of the liver measuring up to 15 mm, increased size of bilateral pleural effusions worse on the right side with mild overlying consolidation, increased volume of free fluid adjacent to the liver within the pelvis. Small stable left adrenal nodule, diverticulosis evidence without diverticulitis. ASSESSMENT AND PLAN: Again this is a very pleasant 86-year-old, elderly male, who presents to [facility] with recurring liver abscess. The patient's gastrointestinal tract has been thoroughly evaluated including an upper endoscopy and colonoscopy completed in February of 2016 with no metastatic lesion seen or cause for recurring liver abscess. At this time, we will go forth with an MRCP to rule out biliary etiology. The patient will be kept n.p.o. in preparation for the MRCP. The patient verbalizes understanding as further recommendations to be given status post MRCP receipt. Thank you for this consultation. TERRELL SHEN MD MMF/danny /[id number] d: 10/30/16 1511 t: 12/04/16 0844, CONSULTATION REPORT
--- NOTE | ~2016-10-20 | HP ---
PATIENT'S NAME: VIRIDIANA LEVIN [facility] AGE: 86 Y [address] ROOM: [address] [address] [facility] ADMIT DATE: 10/20/2016 History & Physical DISCHARGE DATE: FAMILY PHYSICIAN: TIMOTHY HOLMAN MD ATTENDING PHYSICIAN: Aden FLORES DATE OF SERVICE: CHIEF COMPLAINT: Fever. HISTORY OF PRESENT ILLNESS: The patient is an 86-year-old gentleman with past medical history of COPD, hypertension, hypothyroidism, and recent history of septic shock secondary to E. coli infection, who presents here with fever and right upper quadrant pain. The patient was admitted in February 2016 with septic shock secondary to E. coli. During that admission, the patient was found to have some fluid collection suspicious for abscess in his pelvic floor and has had drainage placed in. The patient was treated with broad-spectrum antibiotic with improvement in symptom. During that admission, the patient was also found to have multiple liver masses and had extensive workup including EGD and colonoscopy, which were unrevealing. The patient's symptoms improved, was off pressors, and was discharged home. However, the patient reports a few weeks' history of generalized fatigue, fever, chills, and reports a T-max of 104 during these events. The patient was seen by his PCP for these complaints and had a CT of chest done on October 08, which shows multiple new liver lesions most suspicious for metastatic disease and previous large lobe liver lesion which was found to be smaller or resolved. The patient had a CT-guided biopsy done yesterday for his possible metastatic disease. However, since yesterday, he said his symptoms did not improve and have been getting worse with continued right upper quadrant pain associated with fever, and reports that at home, his temperature was 101. The patient denies cough, diarrhea, chest pain, nausea, vomiting, dizziness, and change in vision. The patient also reports low appetite within these few weeks associated with some weight loss. MEDICAL HISTORY: Hypothyroidism, COPD, hard of hearing, and hypertension. SURGICAL HISTORY: Colonoscopy, EGD, back surgery, hand surgery, and cholecystectomy. FAMILY HISTORY: Brother had heart disease and sister also had heart disease. SOCIAL HISTORY: PATIENT'S NAME: VIRIDIANA LEVIN [facility] AGE: 86 Y [address] ROOM: [id number] [place] [id number] [facility]: [facility] ADMIT DATE: 10/20/2016 History & Physical DISCHARGE DATE: FAMILY PHYSICIAN: TIMOTHY HOLMAN MD ATTENDING PHYSICIAN: Aden FLORES Does not smoke. Does not drink. 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 HOME MEDICATIONS: 1. Albuterol. 2. Amlodipine. 3. Aspirin. 4. Symbicort. 5. Synthroid. 6. Multiple vitamin. 7. Simvastatin. REVIEW OF SYSTEMS: All systems have been reviewed and negative except for what is mentioned in the HPI. PHYSICAL EXAMINATION: VITAL SIGNS: Afebrile, blood pressure 102/56, heart rate of 89, respiratory rate of 18, and saturating 100% on room air. GENERAL APPEARANCE: The patient is alert and awake, in no acute distress. EYES: Sclerae nonicteric. Extraocular muscle intact. HEAD: Normocephalic and atraumatic. NECK: No JVD. CHEST: Clear to auscultation bilaterally. HEART: Regular rate and rhythm. No murmurs, rubs, or gallops heard. ABDOMEN: Mild epigastric tenderness to palpation. No peritoneal signs. No guarding. Bowel sounds present. SKIN: Warm to touch. EXTREMITIES: No edema. NEUROLOGIC: Alert and oriented x3. Motor and sensory grossly intact. MSK: Range of motion intact. No obvious effusion noted. LABORATORY DATA: Procalcitonin of 9.57. White blood cell count of 28.6 and hemoglobin 9.6. INR of 1.11. Sodium of 135, potassium 4.7, blood glucose of 147, BUN of 62, creatinine of 2.1, bicarb of 21, and chloride of 101. CT of abdomen without contrast shows no evidence of complication from liver lesion biopsy. Liver lesion shows relatively rapid change with 12 days ago, appearance suspicious with liver abscess. ASSESSMENT AND PLAN: The patient is an 86-year-old gentleman with recent history of Escherichia coli bacteremia, chronic obstructive pulmonary disease, and hypertension who presents here with severe sepsis secondary to liver abscess. 1. Severe sepsis. Etiology secondary to liver abscess. Most likely, the patient has had seeded bacteria on his last bacteremia onto his liver. PATIENT'S NAME: VIRIDIANA LEVIN [facility] AGE: 86 Y [address] ROOM: [address] [place], [place] [address] [facility] ADMIT DATE: 10/20/2016 History & Physical DISCHARGE DATE: FAMILY PHYSICIAN: TIMOTHY HOLMAN MD ATTENDING PHYSICIAN: Aden FLORES His repeated CT that was done 12 days ago shows improvement of earlier possible metastatic mass, most likely secondary to some antibiotic treatment while he was treated for his bacteremia. However, the patient is now showing new evidence of worsening lesion that is suspicious for liver abscess compared to a CT that was done 12 days ago. Given the patient's history of E. coli, we will start patient on meropenem, but however, we will also include Flagyl for anaerobic coverage. The patient's lactate was elevated to 2.3 and also the patient was noted to have new kidney failure with PITO of 2.1. We will continue IV fluids. The patient's blood pressure is somewhat labile. We will bolus the patient with 2 L and follow lactate level. Blood culture is pending. Discussed the case with Dr. Sawant, who is our interventional radiologist. We will keep the patient n.p.o. tomorrow for possible liver abscess drainage. 2. Liver abscess. See above. 3. Chronic obstructive pulmonary disease, stable. Continue home medication. 4. Hypertension. Holding his amlodipine. Blood pressure is labile. Currently on IV fluid. 5. Hypothyroidism. Continue Synthroid. 6. Acute kidney injury. Etiology most likely secondary acute kidney injury or sepsis. His baseline creatinine is 1. The patient is presenting with creatinine of 2.1 currently. Currently on IV fluid. We will follow renal function panel daily. I have personally reviewed the patient's medical record including, but not limited to, to blood work and radiology report. Total time spent with the patient is greater than 70 minutes; more than 50% of the time spent with direct patient care and patient consultation with Dr. Sawant with Interventional Radiology. Case was reviewed with the patient and nursing staff. All question was answered to the patient's satisfaction. MD ROSEANNE PERRY/modl /[id number] D: [id number] T: [id number] HISTORY & PHYSICAL
[~2016-10-20 14:14] MED LIST changes: -CEFTRIAXONE2 GM IV; -CLOTRIMAZOLE-BE45 GM TOP; -CORDARONE,PACE200 MG PO; -DELTASONE5 MG PO; -FLAGYL500 MG PO; -LACTINEX (FLORA1 TAB PO
[2016-10-20 15:15] LABS: HEMATOCRIT 29.8 % (33.0-50.0); HEMOGLOBIN 9.6 g/dL (11.0-16.0); MCH 30.2 pg (27.0-34.0); MCHC 32.2 gm/dL (32.0-36.5); MCV 93.7 fl (83.0-98.0); MPV 10.8 fl (9.4-12.4); PLATELET COUNT 293 K/uL (150-450); RBC 3.18 M/uL (3.50-5.50); RDW-CV 13.9 % (11.9-14.6); WBC 28.6 K/uL (4.0-11.0)
[2016-10-20 15:47] LABS: BANDED NEUTROPHIL # 3.4 K/uL (0.0-0.1); BANDED NEUTROPHILS % 12 %; LYMPHOCYTE # 1.4 K/uL (0.8-4.0); LYMPHOCYTE % 5 %; MONOCYTE # 1.1 K/uL (0.0-1.0); SEGMENTED NEUTROPHIL # 22.6 K/uL (1.4-9.0); SEGMENTED NEUTROPHIL % 79 %
[2016-10-20 16:10] LABS: ALBUMIN 2.2 gm/dL (3.5-5.0); ANION GAP 17.7 (10.0-19.0); CALCIUM 8.5 mg/dL (8.5-10.5); CREATININE 2.1 mg/dL (0.6-1.3); POTASSIUM 4.7 mMol/L (3.7-5.1); TOTAL BILIRUBIN 0.6 mg/dL (0.0-1.5); TOTAL PROTEIN 7.9 g/dL (6.0-8.4)
[2016-10-20 16:28] LABS: INR - (THERAPEUTIC) 1.11 (0.92-1.07); PROTIME 11.7 SECONDS (9.8-11.4)
[2016-10-20 22:28] LABS: BLOOD URINE 25 /UL (NEGATIVE); COLOR URINE AMBER (YELLOW); GLUCOSE URINE NEGATIVE (NEGATIVE); KETONE URINE 5 mg/dL (NEGATIVE); LEUKOCYTES URINE 25 /UL (NEGATIVE); NITRITE URINE NEGATIVE (NEGATIVE); PROTEIN URINE 30 mg/dL (NEGATIVE); TURBIDITY URINE 1+ (CLEAR); UROBILINOGEN URINE 8 mg/dL (NORMAL)
[2016-10-20 22:44] LABS: AMORPHOUS URINE 1+ (NEGATIVE); BACTERIA URINE FEW (NEGATIVE); EPITHELIAL URINE 0-2 #/HPF (NEGATIVE); HYALINE CAST URINE 0-2 #/LPF (NEGATIVE); MUCUS URINE 1+ (NEGATIVE)
--- NOTE | 2016-10-21 00:44 | NUR ---
Patient arrived to PCU at 1920 from ER. Had a liver biopsy on 10/19. He came into the ER for severe dull upper abdominal pain the next day. Puncture site open to air. IVF infusing, no c/o abdominal pain on admission. SBP decreasing. at bedside. Close monitoring for severe sepsis
[2016-10-21 02:21] LABS: BICARBONATE 22.4 mmol/L (18.0-23.0); PCO2 33 mmHg (35-45); PO2 66 mmHg (80-90)
[2016-10-21 02:24] LABS: HEMATOCRIT 26.7 % (33.0-50.0); HEMOGLOBIN 8.5 g/dL (11.0-16.0); MCH 29.7 pg (27.0-34.0); MCHC 31.8 gm/dL (32.0-36.5); MCV 93.4 fl (83.0-98.0); MPV 10.7 fl (9.4-12.4); PLATELET COUNT 270 K/uL (150-450); RBC 2.86 M/uL (3.50-5.50)
[2016-10-21 02:28] LABS: WBC 24.2 K/uL (4.0-11.0)
[2016-10-21 02:31] LABS: INR - (THERAPEUTIC) 1.17 (0.92-1.07); PROTIME 12.3 SECONDS (9.8-11.4)
[2016-10-21 02:34] LABS: ALBUMIN 1.9 gm/dL (3.5-5.0); ANION GAP 12.2 (10.0-19.0); CALCIUM 7.6 mg/dL (8.5-10.5); CREATININE 1.6 mg/dL (0.6-1.3); PHOSPHORUS 3.1 mg/dL (2.5-4.9); POTASSIUM 4.2 mMol/L (3.7-5.1)
[2016-10-21 02:44] LABS: TOTAL BILIRUBIN 0.5 mg/dL (0.0-1.5); TOTAL PROTEIN 6.4 g/dL (6.0-8.4)
[2016-10-21 02:48] LABS: ALBUMIN 1.8 gm/dL (3.5-5.0)
[2016-10-21 03:17] LABS: ABSOLUTE NEUTROPHIL CT (ANC) 23.2 K/uL (1.4-9.0); BANDED NEUTROPHIL # 8.2 K/uL (0.0-0.1); BANDED NEUTROPHILS % 34 %; LYMPHOCYTE # 0.7 K/uL (0.8-4.0); LYMPHOCYTE % 3 %; MONOCYTE # 0.2 K/uL (0.0-1.0); SEGMENTED NEUTROPHIL % 62 %
--- NOTE | 2016-10-21 04:55 | NUR ---
Significant Event: A/O, SBP 90-130s, keeping MAP >65, patient recieved total of 3L fluid bolus, HR 80-110s, sinus rhythm, afebrile, O2 decreased from 4L-2L this am, keeping sats >90%, RR- 20s, abdominal pain is present but tolerable, crackles to LLL, galvez inserted with only 200ml out, chest xray done, will have CT in the am, nebs and steroid given, lactate down to 1.1 and procal to 7.59 this am, NPO since MN Follow up: Dr Armstrong to see for possible drain placement
[2016-10-21 10:24] LABS: CPK 76 IU/L (35-332)
[2016-10-21 14:46] LABS: BICARBONATE 18.1 mmol/L (18.0-23.0); PCO2 32 mmHg (35-45); PO2 78 mmHg (80-90)
--- NOTE | 2016-10-21 16:02 | NUR ---
Significant Event: Patient arrived to floor at 1410 as transfer from PCU, [employer]. In CT having hepatic drain placed, became hypertensive, SBP 170s, tachycardic HR 150s, oxygen demands increased. Went from 3L NC to 15L nonrebreather. A/Ox3. Spontaneous movement and follows comands x4 extremities. HR currently 90s. SBP 90-100s. Afebrile. No edema. Pulses 2-2-2. Wheezing has improved. 87% high flow NC. Hypoactive bowel sounds. Abdominal pain. RUQ hepatic drain. 15 ml bloody drainage out. Bumex 1mg given. Coulter drained 550 ml urine. Amio running per protocol. NS at 50 ml/hr. States pain is very little. Follow up: Watch overnight and transfer tomorrow.
[2016-10-22 05:21] LABS: HEMATOCRIT 24.3 % (33.0-50.0); MCH 29.4 pg (27.0-34.0); MCHC 31.7 gm/dL (32.0-36.5); MCV 92.7 fl (83.0-98.0); MPV 11.1 fl (9.4-12.4); PLATELET COUNT 237 K/uL (150-450); RBC 2.62 M/uL (3.50-5.50); RDW-CV 14.3 % (11.9-14.6); WBC 20.5 K/uL (4.0-11.0)
[2016-10-22 05:22] LABS: HEMOGLOBIN 7.7 g/dL (11.0-16.0)
[2016-10-22 05:34] LABS: ANION GAP 12.5 (10.0-19.0); BLOOD UREA NITROGEN 45 mg/dL (6-24); CHLORIDE 110 mMol/L (96-110); CO2 24 mMol/L (22-32); CREATININE 1.1 mg/dL (0.6-1.3); MAGNESIUM 2.4 mg/dL (1.8-2.6); POTASSIUM 3.5 mMol/L (3.7-5.1); SODIUM 143 mMol/L (135-145)
[2016-10-22 05:36] LABS: ESTIMATED GFR (MDRD EQUATION) > 60
--- NOTE | 2016-10-22 05:50 | NUR ---
Significant Event: Pt is alert and orineted x3. Hard of hearing. Pupils are equal and reactive. Moves all extremities spontaneously and to command. On 50% FIO2 via high flow NC. Drain for liver abcess in place in the R) upper quadrent of the ABD with 20 ML of bloody drainage out this shit. Pt has an amio gtt running and have been in Afib this shift. Rates have been in the 90-120, with metropolol given x1 for rates over 110. Coulter cath in place with good urine output. No BM this shift. [address] Follow up: Continue to monitor Drain and HG redraw at 0800
[2016-10-22 06:09] LABS: ABSOLUTE NEUTROPHIL CT (ANC) 19.7 K/uL (1.4-9.0); BANDED NEUTROPHIL # 5.9 K/uL (0.0-0.1); BANDED NEUTROPHILS % 29 %; LYMPHOCYTE # 0.6 K/uL (0.8-4.0); LYMPHOCYTE % 3 %; SEGMENTED NEUTROPHIL # 13.7 K/uL (1.4-9.0); SEGMENTED NEUTROPHIL % 67 %
[2016-10-22 08:23] LABS: HEMATOCRIT 26.2 % (33.0-50.0); HEMOGLOBIN 8.5 g/dL (11.0-16.0); MCH 29.9 pg (27.0-34.0); MCHC 32.4 gm/dL (32.0-36.5); MCV 92.3 fl (83.0-98.0); MPV 11.3 fl (9.4-12.4); PLATELET COUNT 262 K/uL (150-450); RBC 2.84 M/uL (3.50-5.50); RDW-CV 14.2 % (11.9-14.6); WBC 21.5 K/uL (4.0-11.0)
[2016-10-22 08:52] LABS: ABSOLUTE NEUTROPHIL CT (ANC) 19.6 K/uL (1.4-9.0); BANDED NEUTROPHIL # 4.1 K/uL (0.0-0.1); BANDED NEUTROPHILS % 19 %; LYMPHOCYTE # 1.1 K/uL (0.8-4.0); LYMPHOCYTE % 5 %; MONOCYTE # 0.9 K/uL (0.0-1.0); SEGMENTED NEUTROPHIL # 15.5 K/uL (1.4-9.0); SEGMENTED NEUTROPHIL % 72 %
--- NOTE | 2016-10-22 10:31 | NUR ---
Significant Event:A/O X 3. Chronic unsteady gait "for awhile now". Ambulates with 1 assist in the room, to the bathroom, up in chair for meals. HR increased to 140's with ambulation. 120's at rest. IV Amiodarone off at 1100, started on 200 mg PO Amiodarone this AM, will increase to 400 mg @ 1400 is new order after discussion with Dr Kaylee LAWLER SL'd. O2 decreased from high flow to 1L/NC. SOB with exertion. Tolerating PO regular diet and fluids, last BM 10/19 is normal. Passing flatus today. Abdomen tender with palpation to RUQ where drain placed. Bloody out put noted in drain bag. Bathed last night, pericares today. Marylin BHANDARI'd at 0912. No void yet. is updated at the bedside. 1 time dose of Potassium 40 meq given this AM. Follow up:Transfer to PCU.
--- NOTE | 2016-10-22 17:21 | NUR ---
Pt arrived on unit from ICU at 1120. A/Ox3. Lungs clear and diminished, 90s on 0.5-1L/NC. SOB with activity. Paroxysmal a fib with HRs 100-120s, went into SR at 1502. RUQ abdominal drain, insertion site covered with gauze and tegaderm and is clean, dry, and intact. Up with 1 assist, GB and walker. Voids per urinal or toilet with adequate UOP. No BMs this shift. No c/o pain throughout shift. R FA and R AC IVs SL. Follow up: Continue to monitor.
--- NOTE | 2016-10-22 17:22 | NUR ---
Introduced self and role of care management to pt and . [place] town and pt was doing pretty well until started getting ill. There house is all one level but does have a basement but do not go down there unless needed. He does not use any dme but does have a cane or walker. AT this time it is too early to tell what will be needed on discharge. WIll continue to follow.
[2016-10-23 05:13] LABS: HEMATOCRIT 25.6 % (33.0-50.0); HEMOGLOBIN 8.3 g/dL (11.0-16.0); MCH 29.6 pg (27.0-34.0); MCHC 32.4 gm/dL (32.0-36.5); MCV 91.4 fl (83.0-98.0); PLATELET COUNT 269 K/uL (150-450); RDW-CV 14.4 % (11.9-14.6); WBC 19.9 K/uL (4.0-11.0)
--- NOTE | 2016-10-23 05:25 | NUR ---
Significant Event: PATIENT IS A/O X3. HARD OF HEARING. VSS. HR 80'S. SBP 100-120'S. AFEBRILE. NO C/O PAIN. LUNGS CLEAR TO CLEAR/DIM. SOB WITH ACTIVITY. UP WITH 1A WALKER/GB. BOWELS HYPOACTIVE. RIGHT UPPER QUADRANT GRAVITY DRAIN WITH BLOODY OUTPUT WITH CLOTS. 50 ML OUTPUT. VOIDS PER URINAL. IV'S TO RIGHT FOREARM AND RIGHT AC SL. ON IV ABX. Follow up: CONTINUE TO MONITOR PER PLAN OF CARE.
[2016-10-23 05:30] LABS: ANION GAP 12.6 (10.0-19.0); BLOOD UREA NITROGEN 52 mg/dL (6-24); CALCIUM 8.1 mg/dL (8.5-10.5); CHLORIDE 114 mMol/L (96-110); CO2 23 mMol/L (22-32); CREATININE 1.1 mg/dL (0.6-1.3); ESTIMATED GFR (MDRD EQUATION) > 60; MAGNESIUM 2.5 mg/dL (1.8-2.6); POTASSIUM 3.6 mMol/L (3.7-5.1); SODIUM 146 mMol/L (135-145)
[2016-10-23 06:12] LABS: ABSOLUTE NEUTROPHIL CT (ANC) 18.7 K/uL (1.4-9.0); BANDED NEUTROPHIL # 2.6 K/uL (0.0-0.1); BANDED NEUTROPHILS % 13 %; LYMPHOCYTE # 1.2 K/uL (0.8-4.0); LYMPHOCYTE % 6 %; SEGMENTED NEUTROPHIL # 16.1 K/uL (1.4-9.0); SEGMENTED NEUTROPHIL % 81 %
--- NOTE | 2016-10-23 15:33 | NUR ---
A - PT SCREENED D/T LOS. S/P LIVER BX. GRAVITY DRAIN TO RUQ. ABD PAIN. DECREASED APPETITE. HT: 61" WT: 131# BMI: 24.8. LABS: NA 146, K+ 3.6, GLU 186, BUN/CR 52/1.1, ALB 1.8, WBC 19.9, HGB/HCT 8.3/25.6. MEDS: SOLUMEDROL, MERREM, PROTONIX, SYNTHROID, FLAGYL. DIET: REG. INTAKE: 0-100%. NEEDS: 9270-3298 KCAL (25-30 KCAL/KG), 60-77 G PRO (1-1.3 G/KG), 1785 ML FLUID (30 ML/KG). D - INADEQUATE NUTRIENT INTAKE AT TIMES R/T DECREASED APPETITE, ABD PAIN AEB INTAKE RECORD. I - GOAL FOR INTAKE 50-100% BY NEXT ASSESSMENT. WILL ADD ENSURE BID. M/E - WILL MONITOR INTAKE F/U IN 4-6 DAYS.
--- NOTE | 2016-10-23 16:23 | NUR ---
Significant Event: PT A/O X3. VSS. ON RA SATS >90%. UP IN ROOM AND IN FRAUSTO WITH ONE ASSIST, GAIT BELT AND WALKER, TOLERATES WELL. NO C/O PAIN. THIS MORNING PATIENT CONVERTED INTO A FLUTTER CARDIZEM GTT STARTED, THIS AFTERNOON CONVERTED BACK TO SR AND CARDIZEM GTT DC'D. RUQ DRAIN HAD 20ML BLOODY DRAINAGE. GAVE 40 MEQ PO K+ FOR A K+ OF 3.6. DEREASED SOLUMEDROL DOSE. GAVE PRUNE JUICE PATIENT HAD A SMALL BM. NO C/O PAIN. IS NOT IN ISOLATION FOR MRSA, PER CULTURES. AT BEDSIDE MOST OF DAY. PATIENT PLEASANT AND COOPERATIVE WITH CARES. Follow up:
--- NOTE | 2016-10-24 04:32 | NUR ---
A/O. HR 70-80s. SBP 120-150s. AFEBRILE. ROOM AIR. SBA TO BATHROOM. VOIDS PER URINAL. NO BM. DENIES PAIN. 20ML OUT FROM ABD DRAIN.
[2016-10-24 07:05] LABS: HEMOGLOBIN 9.1 g/dL (11.0-16.0); MCH 29.4 pg (27.0-34.0); MCHC 32.5 gm/dL (32.0-36.5); MCV 90.6 fl (83.0-98.0); MPV 10.9 fl (9.4-12.4); PLATELET COUNT 301 K/uL (150-450); RBC 3.09 M/uL (3.50-5.50); RDW-CV 14.6 % (11.9-14.6)
[2016-10-24 07:06] LABS: WBC 20.6 K/uL (4.0-11.0)
[2016-10-24 07:21] LABS: ANION GAP 13.1 (10.0-19.0); BLOOD UREA NITROGEN 48 mg/dL (6-24); CALCIUM 8.1 mg/dL (8.5-10.5); CHLORIDE 115 mMol/L (96-110); CO2 23 mMol/L (22-32); CREATININE 1.1 mg/dL (0.6-1.3); ESTIMATED GFR (MDRD EQUATION) > 60; POTASSIUM 4.1 mMol/L (3.7-5.1)
[2016-10-24 07:22] LABS: SODIUM 147 mMol/L (135-145)
[2016-10-24 07:36] LABS: ABSOLUTE NEUTROPHIL CT (ANC) 18.1 K/uL (1.4-9.0); BANDED NEUTROPHIL # 2.3 K/uL (0.0-0.1); BANDED NEUTROPHILS % 11 %; LYMPHOCYTE # 1.9 K/uL (0.8-4.0); LYMPHOCYTE % 9 %; MONOCYTE # 0.4 K/uL (0.0-1.0); SEGMENTED NEUTROPHIL # 15.9 K/uL (1.4-9.0); SEGMENTED NEUTROPHIL % 77 %
--- NOTE | 2016-10-24 16:34 | NUR ---
Significant Event: A/OX3, VSS ON ROOM AIR. PT. GETS UP SBA WITH WALKER/GAIT BELT. NO COMPLAINTS OF PAIN THIS SHIFT. NEW IV STARTED TO LEFT HAND HAS [id number] @ 75ml/HR, CONTINUES ON IV ABX'S. ATE 100% OF BREAKFAST, BUT ONLY DRANK ENSURE FOR LUNCH. VOIDS FINE, SMALL BM X1. DRAIN TO RUQ HAD 20mL OUT, SITE LOOKS GOOD, DRESSING IS C/D/I. Follow up: CONTINUE WITH POC.
[2016-10-25 04:13] LABS: HEMATOCRIT 28.5 % (33.0-50.0); HEMOGLOBIN 9.2 g/dL (11.0-16.0); MCH 29.5 pg (27.0-34.0); MCHC 32.3 gm/dL (32.0-36.5); MCV 91.3 fl (83.0-98.0); PLATELET COUNT 285 K/uL (150-450); RBC 3.12 M/uL (3.50-5.50); RDW-CV 14.6 % (11.9-14.6)
[2016-10-25 04:14] LABS: WBC 22.7 K/uL (4.0-11.0)
[2016-10-25 04:26] LABS: ANION GAP 14.3 (10.0-19.0); BLOOD UREA NITROGEN 44 mg/dL (6-24); CALCIUM 7.8 mg/dL (8.5-10.5); CHLORIDE 112 mMol/L (96-110); CO2 21 mMol/L (22-32); CREATININE 0.9 mg/dL (0.6-1.3); ESTIMATED GFR (MDRD EQUATION) > 60; POTASSIUM 4.3 mMol/L (3.7-5.1); SODIUM 143 mMol/L (135-145)
[2016-10-25 05:22] LABS: ABSOLUTE NEUTROPHIL CT (ANC) 18.4 K/uL (1.4-9.0); BANDED NEUTROPHILS % 13 %; LYMPHOCYTE # 2.3 K/uL (0.8-4.0); LYMPHOCYTE % 10 %; MONOCYTE # 1.6 K/uL (0.0-1.0); SEGMENTED NEUTROPHIL # 15.4 K/uL (1.4-9.0); SEGMENTED NEUTROPHIL % 68 %
--- NOTE | 2016-10-25 05:25 | NUR ---
Significant Event: VSS on RA, afebrile, good UOP, BM this shift, dressing to RUQ intact, drain emptied 15ml serosanguinous fluid, blood clots present in bag, steady on feet, continues with D5W at 75, and IV abt Follow up:continue plan of care
[2016-10-25 10:27] LABS: ALBUMIN 2.1 gm/dL (3.5-5.0); TOTAL BILIRUBIN 0.4 mg/dL (0.0-1.5); TOTAL PROTEIN 5.9 g/dL (6.0-8.4)
--- NOTE | 2016-10-25 16:28 | NUR ---
Significant Event: A/OX3, VSS ON ROOM AIR. NO COMPLAINTS OF PAIN. RUQ DRAIN INTACT, CAN'T GET DRAINAGE OUT D/T CLOTS IN END OF BAG. NPO AFTER MIDNIGHT FOR INTERVENTIONAL RADIOLOGY TO PUT IN ANOTHER DRAIN FOR ANOTHER LIVER ABSESS. PT. GETS UP SBA TO BATHROOM. MODERATE BM'S X2. VOIDS FINE. IV TO LEFT HAND HAS D5W @ 50mL/HR, CONTINUES ON ABX'S. SOLUMEDEROL D/C'D, PREDNISONE TO START. INFECTIOUS DOCTOR TO SEE THIS WEEK. CHEST ULTRASOUND IN AM. Follow up: CONTINUE WITH POC.
--- NOTE | 2016-10-26 05:39 | NUR ---
Significant Event: A/O, VSS on RA, no c/o pain, PIV saline locked, IV antibiotics continue, drain emptied 15 ml serous fluid, large clots present, NPO, SBA Follow up: Interventional radiology to place new drain
[2016-10-26 10:37] LABS: HEMOGLOBIN 9.6 g/dL (11.0-16.0); MCH 29.6 pg (27.0-34.0); MCV 92.6 fl (83.0-98.0); MPV 10.9 fl (9.4-12.4); PLATELET COUNT 309 K/uL (150-450); RBC 3.24 M/uL (3.50-5.50); RDW-CV 14.8 % (11.9-14.6)
[2016-10-26 10:52] LABS: WBC 19.7 K/uL (4.0-11.0)
[2016-10-26 10:54] LABS: ALK PHOS 124 IU/L (33-138); ALT 41 IU/L (12-78); ANION GAP 11.9 (10.0-19.0); AST 23 IU/L (10-40); BLOOD UREA NITROGEN 28 mg/dL (6-24); CHLORIDE 106 mMol/L (96-110); CO2 24 mMol/L (22-32); CREATININE 0.9 mg/dL (0.6-1.3); ESTIMATED GFR (MDRD EQUATION) > 60; POTASSIUM 3.9 mMol/L (3.7-5.1); SODIUM 138 mMol/L (135-145); TOTAL BILIRUBIN 0.4 mg/dL (0.0-1.5); TOTAL PROTEIN 5.3 g/dL (6.0-8.4)
[2016-10-26 11:17] LABS: ABSOLUTE NEUTROPHIL CT (ANC) 15.4 K/uL (1.4-9.0); BANDED NEUTROPHIL # 0.4 K/uL (0.0-0.1); BANDED NEUTROPHILS % 2 %; LYMPHOCYTE # 4.3 K/uL (0.8-4.0); LYMPHOCYTE % 22 %; SEGMENTED NEUTROPHIL % 76 %
[2016-10-26 11:20] LABS: ALBUMIN 1.9 gm/dL (3.5-5.0); CALCIUM 7.4 mg/dL (8.5-10.5)
--- NOTE | 2016-10-26 11:58 | NUR ---
Social visit with pt and today. He states he is feeling better and up walking. He states plan is for maybe the interventional radiologist to adjust the drain today but unsure if he is here. They still plan on home on dc and doubt they will need home health care. WIll continue to follow.
--- NOTE | 2016-10-26 17:53 | NUR ---
Significant event: Patient is alert and oriented x3. VSS. on room air. Drain to abdomen, no output. To flush with 5ml NS BID. IV to left hand with D5 1/2 NS at 42mls/hr. Plan for a fluroscopy with Dr Morel on Weds/ Had + blood cultures. No changes in antibiotics. Regular diet. Is stand by assist with ambulation. Cooperative with cares.
[2016-10-27 04:16] LABS: HEMATOCRIT 28.5 % (33.0-50.0); MCH 29.6 pg (27.0-34.0); MCHC 31.6 gm/dL (32.0-36.5); MCV 93.8 fl (83.0-98.0); MPV 10.8 fl (9.4-12.4); PLATELET COUNT 301 K/uL (150-450); RBC 3.04 M/uL (3.50-5.50); RDW-CV 14.9 % (11.9-14.6)
[2016-10-27 04:19] LABS: WBC 16.6 K/uL (4.0-11.0)
[2016-10-27 04:30] LABS: ANION GAP 11.1 (10.0-19.0); BLOOD UREA NITROGEN 27 mg/dL (6-24); CHLORIDE 106 mMol/L (96-110); CO2 24 mMol/L (22-32); CREATININE 0.9 mg/dL (0.6-1.3); ESTIMATED GFR (MDRD EQUATION) > 60; POTASSIUM 4.1 mMol/L (3.7-5.1); SODIUM 137 mMol/L (135-145)
[2016-10-27 04:31] LABS: CALCIUM 7.4 mg/dL (8.5-10.5)
--- NOTE | 2016-10-27 05:00 | NUR ---
Significant Event: A/O, VSS on RA, liver abcess drain irrigated, had 5ml out, many clots present in bag, dressing has marked drainage but increased throughout night, new IV to L)post fa with D51/2 NS infusing at 42ml, intermittent abt Follow up: continue plan of care, Dr Morel to assess drain with fluroscpy on Wednesday
[2016-10-27 05:20] LABS: ABSOLUTE NEUTROPHIL CT (ANC) 12.8 K/uL (1.4-9.0); BANDED NEUTROPHIL # 0.7 K/uL (0.0-0.1); BANDED NEUTROPHILS % 4 %; LYMPHOCYTE # 1.5 K/uL (0.8-4.0); LYMPHOCYTE % 9 %; MONOCYTE # 0.3 K/uL (0.0-1.0); SEGMENTED NEUTROPHIL # 12.1 K/uL (1.4-9.0); SEGMENTED NEUTROPHIL % 73 %
--- NOTE | 2016-10-27 10:39 | NUR ---
A-NUTRITION F/U ANOTHER DRAIN TO BE PLACED TOMORROW. LABS: NA 137, K+ 4.1, GLU 125, BUN 27, ALKYLATION OPERATOR 0.9, ALB 1.9, PREALB 15.0 MEDS: NINI SCOTT SPOKE WITH PT RE: PO INTAKE AND APPETITE. PT REPORTS THAT HE ALWAYS HAS A LIGHT BRK AT HOME. STATES THAT HE CURRENT APPETITE IS FAIR. HE IS DRINKING THE ENSURE ENLIVE; PREFERS THE [facility] FLAVOR. DIET RX: REGULAR W/ENSURE ENLIVE BID. PO INTAKE REF-100%; AVG IS 51%. GOAL IS >/=50%. EST NUTR NEEDS: [id number] KCALS AND 60-77 GM PROTEIN D-AT NUTRITION RISK W/INADEQUATE NUTRIENT INTAKE AT TIMES R/T DECREASED APPETITE, PROCEDURES AEB PT REPORT, INTAKE RECORDS. I-CONTINUE ENSURE ENLIVE BID; CHANGE FLAVOR TO [facility] M/E-GOAL: PO INTAKE >/=50% FOR DURATION OF ADMIT 1)F/U PO INTAKE, SUPPLEMENT, AND POC IN 3-5 DAYS 2)ASSIST NEEDED
--- NOTE | 2016-10-27 16:40 | NUR ---
Significant Event: A/OX3, VSS ON ROOM AIR. PT. GETS UP SBA TO BATHROOM. RUQ DRAIN INTACT WITH 5mL SEROUSANGIOUS OUT, DRESSING MODERATE AMOUNT OF DRAINAGE. 5mL NS FLUSH THIS AM TO TUBING. L)FA IV HAS IVF @ 42mL/HR. NO COMPLAINTS OF PAIN. PT. WILL BE NPO ON WEDNESDAY @ MIDNIGHT FOR DR. LAMA TO PLACE NEW DRAIN FROM HEPATIC ABSESS IN IR. Follow up: CONTINUE WITH POC.
--- NOTE | 2016-10-28 04:40 | NUR ---
Significant Event: Patient A/Ox3. VSS on RA. Patient is up standby assist to bathroom and does very well. D5 with half NS running at 42ml/hr to IV in L)FA. Abdominal drain flushed with 5ml of NS. 10ml of output (not including the NS). R) arm edematous. lower extremity edema seems to be improving. Follow up: Contact radiology today for new bag/tubing/stopcock to change drain.
[2016-10-28 10:57] LABS: HEMATOCRIT 31.4 % (33.0-50.0); HEMOGLOBIN 10.2 g/dL (11.0-16.0); MCH 29.8 pg (27.0-34.0); MCHC 32.5 gm/dL (32.0-36.5); MCV 91.8 fl (83.0-98.0); MPV 10.9 fl (9.4-12.4); PLATELET COUNT 337 K/uL (150-450); RBC 3.42 M/uL (3.50-5.50)
[2016-10-28 11:02] LABS: WBC 25.1 K/uL (4.0-11.0)
[2016-10-28 11:10] LABS: INR - (THERAPEUTIC) 1.08 (0.92-1.07); PROTIME 11.3 SECONDS (9.8-11.4)
[2016-10-28 11:14] LABS: ALBUMIN 2.2 gm/dL (3.5-5.0); ALK PHOS 128 IU/L (33-138); ALT 35 IU/L (12-78); ANION GAP 11.9 (10.0-19.0); AST 19 IU/L (10-40); BLOOD UREA NITROGEN 23 mg/dL (6-24); CHLORIDE 105 mMol/L (96-110); CO2 25 mMol/L (22-32); CREATININE 0.9 mg/dL (0.6-1.3); ESTIMATED GFR (MDRD EQUATION) > 60; POTASSIUM 3.9 mMol/L (3.7-5.1); SODIUM 138 mMol/L (135-145); TOTAL BILIRUBIN 0.4 mg/dL (0.0-1.5); TOTAL PROTEIN 5.5 g/dL (6.0-8.4)
[2016-10-28 11:15] LABS: CALCIUM 7.4 mg/dL (8.5-10.5); PHOSPHORUS 1.7 mg/dL (2.5-4.9)
[2016-10-28 11:33] LABS: ABSOLUTE NEUTROPHIL CT (ANC) 20.6 K/uL (1.4-9.0); LYMPHOCYTE # 2.5 K/uL (0.8-4.0); LYMPHOCYTE % 10 %; MONOCYTE # 1.5 K/uL (0.0-1.0); SEGMENTED NEUTROPHIL # 20.6 K/uL (1.4-9.0); SEGMENTED NEUTROPHIL % 82 %
--- NOTE | 2016-10-28 13:42 | NUR ---
CONSULT RECEIVED FOR HIGH PRO DIET AND SUPPLEMENTS TID. HIGH PRO DIET NOT AVAILABLE AT [facility]. PT ALREADY RECEIVES ENSURE ENLIVE TID -WHICH HE IS DRINKING. PLEASE SEE /2 DIETITIAN NOTE FOR FURTHER DETAILS. WILL CONTINUE TO FOLLOW.
--- NOTE | 2016-10-28 13:43 | NUR ---
CONSULT RECEIVED FOR HIGH PROTEIN DIET AND SUPPLEMENTS TID. HIGH PROTEIN DIET NOT AVAILABLE AT [facility]. PT ALREADY RECEIVING ENSURE ENLIVE TID AND IS DRINKING. PLEASE SEE 5/2 DIETITIAN NOTE IN [facility] FOR FURTHER INFORMATION. WILL CONTINUE TO FOLLOW PT.
--- NOTE | 2016-10-28 16:45 | NUR ---
Significant Event: A/OX3, VSS ON ROOM AIR. RIGHT ARM MORE EDEMATOUS THIS AM, ELEVATING IT ON 2 PILLOWS WITH ICE PACK PRN. SLIV TO L)FA. MEROPENEM D/C'D TODAY AND STARTED ON IV ROCEPHIN, CONTINUES ON IV FLAGYL, IVF D/C'D. PT. GETS UP SBA WITH WALKER IN ROOM. NO COMPLAINTS OF PAIN. NPO AFTER MIDNIGHT FOR IR DRAIN PLACMENT, PERMITS TO FRONT OF CHART. RUQ DRAIN DRESSING CHANGED THIS AM, NOW C/D/I, NO OUTPUT FROM DRAIN, 5mL FLUSH TO PT. CHANGED TO QID. Follow up: CONTINUE WITH POC.
--- NOTE | 2016-10-29 04:47 | NUR ---
Significant Event: Patient A/Ox3. VSS on RA. Patient is up standby assist to bathroom. Tubigrip to R) arm in order to reduce swelling. NPO since midnight for drain placement today. flagylx2. Current abdominal drain flushed x2, but no output. Follow up: New drain to be placed today by Dr. Morel
--- NOTE | 2016-10-29 16:48 | NUR ---
Significant Event: Alert/oriented x 3. Vitals stable. Room air. Denies pain. Flushed drain to RUQ with 5 ml NaCl, with no output from drain; dressing clean/dry/intact. Standby assist. Voiding adequate amounts of urine per bathroom. IV to left forearm intact, flushes well with no blood return. NPO for drain placement this afternoon. Follow up: Drain placement.
[2016-10-30 03:52] LABS: HEMATOCRIT 27.9 % (33.0-50.0); IMMATURE GRANULOCYTE # 0.4 K/uL (0.0-0.3); IMMATURE GRANULOCYTE % 4.4 %; LYMPHOCYTE # 1.6 K/uL (0.8-4.0); LYMPHOCYTE % 17.5 %; MCH 29.6 pg (27.0-34.0); MCHC 32.3 gm/dL (32.0-36.5); MCV 91.8 fl (83.0-98.0); MONOCYTE # 0.8 K/uL (0.0-1.0); MONOCYTE % 8.1 %; MPV 10.4 fl (9.4-12.4); NEUTROPHIL # (ANC) 6.5 K/uL (1.4-9.0); NRBC % 0 /100WBC (0-0.00); PLATELET COUNT 338 K/uL (150-450); RBC 3.04 M/uL (3.50-5.50); RDW-CV 15.4 % (11.9-14.6); WBC 9.3 K/uL (4.0-11.0)
--- NOTE | 2016-10-30 04:05 | NUR ---
Significant Event: Patient A/Ox3. VSS on RA. Up minimal assist to bathroom. Patient had another hepatic drain placed to R) abdomen. Bloody drainage of 5ml. Both hepatic drains flushed with 5ml NS. No complaints of pain. Follow up: Continue plan of care
--- NOTE | 2016-10-30 13:12 | NUR ---
A-NUTRITION F/U 2ND IR DRAIN PLACED YESTERDAY. (+)BM. LABS: NA 138, K+ 3.9, GLU 128, BUN 23, SHANK PINNER 0.9, ALB 2.2 MEDS: ROCEPHIN AND PERCOCET STARTED DIET RX: NPO. PO INTAKE HAS BEEN 100% WHEN PT IS NOT NPO, SINCE LAST F/U VISIT. VANILLA ENSURE ENLIVE BID; PT TAKES WELL. EST NUTR NEEDS: [id number] KCALS AND 60-77 GM PROTEIN D-AT NUTRITION RISK W/INADEQUATE NUTRIENT INTAKE AT TIMES D/T NPO STATUS FOR PROCEDURES AEB INTAKE RECORDS. I-WILL INCREASE VANILLA ENSURE ENLIVE FROM BID TO TID M/E-GOAL: PO INTAKE >/=75% WHEN DIET RX RESUMED 1)F/U DIET RX, PO INTAKE, SUPPLEMENT, AND POC IN 4-5 DAYS 2)ASSIST NEEDED
--- NOTE | 2016-10-30 15:56 | NUR ---
I did give a heads up to [facility] to maybe check with pt/ on Wednesday if home health services is needed.
--- NOTE | 2016-10-30 17:27 | NUR ---
A&O. SBA. VSS. AMB IN FRAUSTO. NPO AT 0800 FOR MRCP. RUQ DOMINIQUE 40ML OUT. FLUSH WITH NS ON AUG. NO C/O PAIN. SBP 130'S-140'S. HR 70'S. AFEBRILE. AT BEDSIDE. LS CLEAR. VD PER BR.
--- NOTE | 2016-10-31 05:08 | NUR ---
Significant Event: A/O x3. Afebrile. Denies pain. VSS on RA. SBP 100-140s. HR 70s. LS clear/dim. New hepatic drain w/ 60 ml out in right upper abdomen. Irrigated w/ 5ml of ns. Up standby assist w/ walker. Rt hand/arm w/ compression wrap for prior infiltrated iv. Cooperative with care.s Follow up: Continue to monitor per plan of care.
--- NOTE | 2016-10-31 18:46 | NUR ---
Significant Event: A/O X 3. AMBULATED IN HALLS, GAIT STEADY. OLD PLEURAL DRAIN 20 ML OUT, NEW PLEURAL DRAIN 50 ML OUT. AFEBRILE. HR SR IN 70'S. SBP 130-170'S. INITIATED NORVASC. CONT. ON IV ANTIBIOTICS. AT BEDSIDE, PART OF DAY. Follow up: CONT. TO MONITER HEPATIC STATUS.
--- NOTE | 2016-11-01 04:23 | NUR ---
Significant Event: A/O x3. Afebrile. Denies pain. VSS on RA. SBP 140-150s. LS clear/dim. Bowel sounds active. new hepatic drain with 30ml out. Insufficent amount in old drainage bag to empty. Up standby assist with walker. Follow up: Continue to monitor per plan of care.
--- NOTE | 2016-11-01 16:06 | NUR ---
Significant Event: A/O X 3. UP WALKING IN HALLS, SBA. GAIT STEADY. DENIES PAIN. HAS OLD PLEURAL DRAIN=0 ML, NEW PLEURAL DRAIN=15. AFEBRILE. HR SR IN 70'S. SBP 125-145. SATS 94% ON ROOM AIR, NO RESP, DISTRESS NOTED. CONT. ON IV FLAGYL. Follow up: CONT. PLAN OF CARES.
--- NOTE | 2016-11-02 04:05 | NUR ---
Significant Event: VSS, PT AFEBRILE. CONTINUES ON RA WITH SATS IN THE MID 90'S. PT HAS NO CO PAIN. 15ML OUT PER NEW ABDOMINAL DRAIN. PT UP TO BATHROOM WITH WALKER AND SBA. A&OX3. COOPERATIVE WITH CARES. RESTED WELL THROUGH THE NIGHT. Follow up:
--- NOTE | 2016-11-02 13:49 | NUR ---
Reviewed chart, per physician progress note will need 2-3 weeks IV antibx as outpt. On IV Rocephin 2 gram q day and IV Flagyl q 8 hours. Has a peripheral IV in and still has SAL drain in. Talked with patient and , at first they seemed unaware of plan for 2-3 weeks IV abx as outpt but towards end of conversation says physician said possibly would need outpt IV antibx. Offered option of outpt IV abx at [facility] center vs home infusion/HH. thinks the have a $50 copay for the outpt IV abx so would like to see if they can do home infusion. Jeaneth, tree care foreman had made referral to [facility] HH on Wednesday so I talked with Eileen from [facility] and she was going to talk with pt and and then will call [facility] to get cost estimate for them. Waiting to see when SAL drain comes out and will need PICC line placed, and not sure if just needs IV Rocephin 2 gram once a day or if will need IV Flagyl q 8 as well. Not sure if ID doc needs to see them Wed before ready for dc. Note on chart for physician.
--- NOTE | 2016-11-02 16:47 | NUR ---
Talked with Juan Estrella APRN for hospitalist. Pt will go home with drain in, and getting PICC line today. Juan is going to call ID physician to make final determination of IV antibx regimen at home but potentially could discharge tomorrow if we can get things arranged. I talked with Eileen at [facility] and she faxed request to [facility] to get estimate of cost for Home Infusion for 2 IV antibx/antifungal meds pt is on. Went over and talked with patient and daughter, they are okay with plan for home tomorrow with home infusion if that works out, daughter will plan on helping her mom with the home infusion regimen. Will see what final recommendation for meds are and what [facility] determines pt insurance will cover.
--- NOTE | 2016-11-02 16:56 | NUR ---
A&O.IND. NO C/O PAIN. VSS. DRAIN TO R SIDE X2 FLUSHED NO OUTPUT. PICC PLACEMNET TODAY. LS CLEAR. VOID PER BR. MOD BM TODAY. 1+EDEMA BLE. PLAN IS HOME WITH IV ATBX
--- NOTE | 2016-11-03 05:36 | NUR ---
Significant Event: UP WITH STANDBY ASSIST TO BR. STEADY GAIT WITH WALKER. BOTH DRAINS FLUSHED ORDERED. THE NON-CLOTTED DRAIN HAD 10ML OF SEROSANG DRAINAGE. REMAINS ON ROOM AIR ALL NIGHT. Follow up: HOME TODAY?
--- NOTE | 2016-11-03 09:47 | NUR ---
Received call from Eileen with S and she heard back from [facility], it will be approximately $40.00 per week copay for the Home Infusion for IV Rocephin 2 gram once a day. [employer] Operator will let patient and know, but they will likely want to do that as told me yesterday they have a $50.00 copay every outpt visit they make. Let Eileen know we have been giving IV Rocephin about 0900 every morning. They will plan on him discharging later today and admit to HH/HIP tomorrow am.
--- NOTE | 2016-11-03 10:55 | NUR ---
PT REASSESSED AT NO NUTRITION RISK W/ADEQUATE ORAL INTAKE. WILL CONTINUE ENSURE ENLIVE BID TO MAINTAIN NUTRITION STATUS. ASSIST NEEDED.
--- NOTE | 2016-11-03 12:14 | NUR ---
I did call Rusty with [facility]- pharmacy and they are in network with the insurance and [facility] does wave that fee for the supplies for home infusion. He stated it would be about $40 a week for the drug and yes if the pt is leaving today they can get is shipped out overnite and to them mid am and [facility] can get out to do the first dose and the teaching. I stopped by to visit the pt and and she stated the daughter is also going to be there so she is able to do it and [facility] can help with the drains as well. I spoke with GARFIELD TEJADA and he will do the orders. I did call Eileen and left a vm regarding pt leaving today and getting orders. WIll continue to follow and assist as needed.
--- NOTE | 2016-11-03 15:08 | NUR ---
I did talk with Mary with [facility] and also Eileen. I did fax dc orders to [facility] and they have the dc paper work already. Will assist as needed.
[2016-11-03] MEDS ORDERED: CEFTRIAXONE2 GM IV (15:25)
[2016-11-03] MEDS ORDERED: CORDARONE,PACE200 MG PO (15:26)
[2016-11-03] MEDS ORDERED: FLAGYL500 MG PO (15:27)
[2016-11-03] MEDS ORDERED: DELTASONE10 MG PO (15:29)
[2016-11-03] MEDS ORDERED: DELTASONE5 MG PO (15:30)
[2016-11-03] MEDS ORDERED: LACTINEX (FLORA1 TAB PO (15:32)
--- NOTE | 2016-11-03 16:31 | NUR ---
A&O SBA. VSS. LS CLEAR. VD PER BR. BM YESTERDAY. DC INSTRUCTIONS REVIEWED. DC IV UPON DISCHARGE. DRAINS X2 INTACT TEACHING DONE. PICC DAVIDE INTACT TEACHING DONE . AT BEDSIDE . HH TO SCHEDULE APT FOR HOME INFUSION. AMB TO LOBBY HOME IN PRIVATE VEHICLE
[2016-11-12] MEDS ORDERED: CLOTRIMAZOLE-BE45 GM TOP (11:41)
--- NOTE | 2016-11-12 14:19 | NUR ---
10/29/16 Introduced self and purpose of heart healthy education. Calendar given, information reviewed, verbalized understanding.
== END 2016-11-03 16:33 | disposition disaster alternative care site (69) | DRG 871 ==
LOC: GMED 14:14 → GPCU 18:32 → GICU 18:32 → GPCU 10-22 11:19
PROVIDERS: Emergency Medicine; Hospitalist; Internal Medicine; Internal Medicine Cardiovascular Disease; ADMIT Internal Medicine
PROC: 0F9030Z Drainage of Liver with Drainage Device, Percutaneous Approach (ICD-10-PCS; principal; 2016-10-21)
PROC: 0F903ZZ Drainage of Liver, Percutaneous Approach (ICD-10-PCS; 2016-10-28)
DX: A41.9 Sepsis, unspecified organism (principal); J96.01 Acute respiratory failure with hypoxia; K75.0 Abscess of liver; N17.9 Acute kidney failure, unspecified; J44.1 Chronic obstructive pulmonary disease with (acute) exacerbation; I48.0 Paroxysmal atrial fibrillation; I50.32 Chronic diastolic (congestive) heart failure; E44.1 Mild protein-calorie malnutrition; D64.9 Anemia, unspecified; E03.9 Hypothyroidism, unspecified; E87.6 Hypokalemia; I10 Essential (primary) hypertension; I25.10 Atherosclerotic heart disease of native coronary artery without angina pectoris; R65.20 Severe sepsis without septic shock
CPT/HCPCS: C1729; C1751; C1769; G0237; J0282; J0696; J2020; J2175; J2185; J2270; J2920; J2930; J3010; J3370; J7030; J7040; J7050; J7060; J7512; J7612; P9045

== ENCOUNTER → 2016-11-09 | Outpatient (CLI) | payer MEDICARE ==
[~2016-11-09] MED LIST changes: +CEFTRIAXONE2 GM IV; +CLOTRIMAZOLE-BE45 GM TOP; +CORDARONE,PACE200 MG PO; +DELTASONE5 MG PO; +FLAGYL500 MG PO; +LACTINEX (FLORA1 TAB PO
== END | disposition disaster alternative care site (69) ==
LOC: GOPP 11-05 15:00
PROC: 0F9130Z Drainage of Right Lobe Liver with Drainage Device, Percutaneous Approach (ICD-10-PCS; principal; 2016-11-09)
DX: K75.0 Abscess of liver (principal)
CPT/HCPCS: Q9967

== ENCOUNTER → 2016-11-09 | Outpatient (CLI) | payer MEDICARE ==
[2016-11-09 14:13] LABS: BASOPHIL % 0.1 %; HEMOGLOBIN 9.5 g/dL (11.0-16.0); IMMATURE GRANULOCYTE # 0.1 K/uL (0.0-0.3); IMMATURE GRANULOCYTE % 0.6 %; LYMPHOCYTE % 7.8 %; MCH 30.4 pg (27.0-34.0); MCHC 31.7 gm/dL (32.0-36.5); MCV 95.8 fl (83.0-98.0); MONOCYTE # 0.6 K/uL (0.0-1.0); MONOCYTE % 4.8 %; MPV 10.7 fl (9.4-12.4); NEUTROPHIL # (ANC) 10.6 K/uL (1.4-9.0); NEUTROPHIL % 86.7 %; NRBC % 0 /100WBC (0-0.00); RBC 3.13 M/uL (3.50-5.50); WBC 12.2 K/uL (4.0-11.0)
[2016-11-09 14:19] LABS: PLATELET COUNT 240 K/uL (150-450); RDW-CV 18.1 % (11.9-14.6)
[2016-11-09 14:25] LABS: ALBUMIN 2.7 gm/dL (3.5-5.0); ANION GAP 9.5 (10.0-19.0); CALCIUM 7.6 mg/dL (8.5-10.5); CREATININE 1.2 mg/dL (0.6-1.3); POTASSIUM 4.5 mMol/L (3.7-5.1); TOTAL PROTEIN 6.2 g/dL (6.0-8.4)
[2016-11-09 14:28] LABS: TOTAL BILIRUBIN 0.3 mg/dL (0.0-1.5)
== END | disposition disaster alternative care site (69) ==
LOC: LHHCN 14:06
PROVIDERS: Internal Medicine Infectious Disease
DX: A41.51 Sepsis due to Escherichia coli [E. coli] (principal); Z45.2 Encounter for adjustment and management of vascular access device

== ENCOUNTER → 2016-11-16 | Outpatient (CLI) | payer MEDICARE | END | disposition disaster alternative care site (69) | LOC: GOPD 11-12 | PROC: 0F903ZZ Drainage of Liver, Percutaneous Approach (ICD-10-PCS; principal; 2016-11-16) | DX: K75.0 Abscess of liver (principal) | CPT/HCPCS: J1644; J2001 ==

== ENCOUNTER → 2016-11-16 | Outpatient (CLI) | payer MEDICARE ==
[2016-11-16 10:42] LABS: ALBUMIN 2.7 gm/dL (3.5-5.0); ALK PHOS 94 IU/L (33-138); ALT 19 IU/L (12-78); ANION GAP 13.6 (10.0-19.0); AST 18 IU/L (10-40); BLOOD UREA NITROGEN 17 mg/dL (6-24); CALCIUM 7.8 mg/dL (8.5-10.5); CHLORIDE 106 mMol/L (96-110); CO2 24 mMol/L (22-32); CREATININE 0.9 mg/dL (0.6-1.3); ESTIMATED GFR (MDRD EQUATION) > 60; POTASSIUM 3.6 mMol/L (3.7-5.1); SODIUM 140 mMol/L (135-145); TOTAL PROTEIN 6.4 g/dL (6.0-8.4)
[2016-11-16 10:45] LABS: TOTAL BILIRUBIN 0.2 mg/dL (0.0-1.5)
[2016-11-16 10:50] LABS: BASOPHIL # 0.1 K/uL (0.0-0.2); BASOPHIL % 0.9 %; EOSINOPHIL # 0.3 K/uL (0.0-0.5); EOSINOPHIL % 4.5 %; HEMATOCRIT 30.8 % (33.0-50.0); HEMOGLOBIN 9.5 g/dL (11.0-16.0); IMMATURE GRANULOCYTE # 0.1 K/uL (0.0-0.3); IMMATURE GRANULOCYTE % 1.4 %; LYMPHOCYTE # 1.5 K/uL (0.8-4.0); LYMPHOCYTE % 22.6 %; MCH 30.2 pg (27.0-34.0); MCHC 30.8 gm/dL (32.0-36.5); MCV 97.8 fl (83.0-98.0); MONOCYTE # 0.6 K/uL (0.0-1.0); MPV 10.4 fl (9.4-12.4); NEUTROPHIL % 61.6 %; NRBC % 0 /100WBC (0-0.00); RBC 3.15 M/uL (3.50-5.50); RDW-CV 18.9 % (11.9-14.6); WBC 6.4 K/uL (4.0-11.0)
[2016-11-16 10:51] LABS: PLATELET COUNT 376 K/uL (150-450)
== END | disposition disaster alternative care site (69) ==
LOC: LHHCN 10:15
PROVIDERS: Internal Medicine Infectious Disease
DX: K75.0 Abscess of liver (principal); A41.9 Sepsis, unspecified organism